=== PATIENT | female | born 1975 | race Caucasian/White ===

== ENCOUNTER → 2018-07-20 | Outpatient (CLI) | payer OTHER ==
[~2018-07-20] VITALS: Ht 172.7 cm; Wt 90.7 kg
[~2018-07-20] MED LIST: BUSP5TAB PO; FLUO20CA16 PO; LINZESS145 MCG PO; SINCALIDE 1.81 MCG in IV NORMAL SALINE 50ML 30 ML IV ONE; TRAZ150T49 PO
--- NOTE | 2018-07-20 12:51 | RAD ---
EXAM: Nuclear hepatobiliary scan. HISTORY: Bloating and pain. TECHNIQUE: Following intravenous administration of 5.5 mCi Tc 99m Choletec, anterior images of the abdomen were obtained at five minute intervals through one hour. Subsequently, 1.8 mcg CCK was administered and additional images to assess gallbladder ejection fraction were obtained. FINDINGS: There is prompt radiotracer uptake by the liver. No focal defect is seen. There is normal excretion into the biliary tree. The gallbladder is visualized within 10 minutes and there is free flow into the duodenum. The gallbladder ejection fraction is 95%. IMPRESSION: Normal radionuclide biliary scan. Electronically signed by: Flavia Oneil MD (07/20/2018 12:48 PM) [id number]
== END | disposition home or self-care (01) ==
LOC: NM 10:05
PROVIDERS: ATTEND Physician Assistant
DX: R14.0 Abdominal distension (gaseous) (principal)
CPT/HCPCS: 78227; A9537; J2805

== ENCOUNTER → 2018-07-23 | Outpatient (CLI) | payer OTHER ==
[~2018-07-23] MED LIST changes: -SINCALIDE 1.81 MCG in IV NORMAL SALINE 50ML 30 ML IV ONE
--- NOTE | 2018-07-23 09:31 | KCIC ---
Complete abdomen ultrasound study Clinical indications: Abdominal bloating. FINDINGS: The pancreas is homogeneous without focal enlargement. The main pancreatic duct measures 2.9 mm in caliber which is at the upper limits of normal. The extra hepatic bile duct measures 4.3 mm in caliber which is normal. The gallbladder is normal without gallstones. The liver measures 21.1 cm in length which is enlarged. There is diffuse attenuation of sound throughout the liver which may be seen with fatty infiltration of the liver. This decreases the sensitivity of sonography to detect focal hepatic lesions. No focal hepatic mass is seen otherwise. The intrahepatic portion of IVC is unremarkable. No focal aneurysmal dilatation of the abdominal aorta is seen. The distal abdominal aorta is obscured by bowel gas. The length of the right kidney is 11.4 cm. The length of the left kidney is 12.2 cm. No hydronephrosis or perinephric fluid collection is seen on either side. There is a complex cyst of the upper pole of the kidney measuring 2.4 cm in size. The spleen measures 10.8 cm in length which is normal. No ascites is seen. IMPRESSION: 2.4 cm complex cyst of the upper pole of the left kidney. Recommend pre and postcontrast enhanced CT study of the abdomen for further evaluation of this cyst. Hepatomegaly. Fatty infiltration of the liver. Electronically signed by: Hunter Treadwell MD (07/23/2018 9:28 AM) [facility]
== END | disposition home or self-care (01) ==
LOC: KCIC US 07:37
PROVIDERS: ATTEND Physician Assistant
DX: N28.1 Cyst of kidney, acquired (principal); K76.0 Fatty (change of) liver, not elsewhere classified; R16.0 Hepatomegaly, not elsewhere classified
CPT/HCPCS: 76700

== ENCOUNTER 2018-07-27 07:00 | Day surgery (SDC) | payer OTHER ==
[~2018-07-27] VITALS: Ht 167.6 cm; Wt 92.0 kg
[2018-07-27] MEDS ORDERED: IV RINGERS,LACTATED 1000ML 1,000 ML IV SCH (07:04)
[2018-07-27] MEDS ORDERED: LIDOCAINE 1% PF 2 ML VIAL. ID PRN (07:15)
[2018-07-27] MEDS ORDERED: ONDANSETRON PF 4 MG/2 ML VIAL. IV PRN (07:15)
[2018-07-27] MEDS ORDERED: PROCHLORPERAZINE 10 MG/2 ML VIAL. IV PRN (07:15)
[2018-07-27] MEDS ORDERED: HYDROmorphone 2 MG/ML VIAL IV PRN (07:15)
[2018-07-27] MEDS ORDERED: MORPHINE SULFATE 2 MG/ML VIAL. IV PRN (07:15)
[2018-07-27] MEDS ORDERED: fentaNYL PF VIAL 100 MCG/2 ML VIAL IV PRN ×2 (07:15)
[2018-07-27] MEDS ORDERED: LINZESS145 MCG PO (07:27)
[2018-07-27] MEDS ORDERED: TRAZ150T49 PO (07:28)
[2018-07-27] MEDS ORDERED: BUSP5TAB PO (07:29)
[2018-07-27] MEDS ORDERED: FLUO20CA16 PO (07:30)
[2018-07-27] MEDS ORDERED: SUCCINYLCHOLINE 200 MG/10 ML VIAL. ONE (07:44)
[2018-07-27] MEDS ORDERED: fentaNYL PF VIAL 100 MCG/2 ML VIAL ONE ×2 (07:44→10:14)
[2018-07-27] MEDS ORDERED: ROCURONIUM 50 MG/5 ML VIAL. ONE (07:44)
[2018-07-27] MEDS ORDERED: SCOPOLAMINE 1.5MG PATCH. TD STA (07:46)
[2018-07-27 07:47] LABS: BASO # 0.1 x10^3/uL (0.0-0.2); BASO % 1 % (0-3); EOS # 0.7 x10^3/uL (0.0-0.7); EOS % 8 % (0-3); HEMATOCRIT 39.8 % (36.0-47.0); LYMPH # 3.1 x10^3/uL (1.0-4.8); LYMPH % 37 % (24-48); MEAN CORPUSCULAR HEMOGLOBIN 29 pg (25-35); MEAN CORPUSCULAR HGB CONC 33 g/dL (31-37); MEAN CORPUSCULAR VOLUME 88 fL (79-100); MONO # 0.5 x10^3/uL (0.0-1.1); MONO % 6 % (0-9); NEUT # 4.1 x10^3uL (1.8-7.7); NEUT % 48 % (31-73); PLATELET COUNT 403 x10^3/uL (140-400); RED BLOOD COUNT 4.54 x10^6/uL (3.50-5.40); WHITE BLOOD COUNT 8.5 x10^3/uL (4.0-11.0)
[2018-07-27] MEDS ORDERED: PROPOFOL 20 ML IV ONE (07:55)
[2018-07-27] MEDS ORDERED: LIDOCAINE 2% PF 5 ML VIAL. ONE (07:55)
[2018-07-27 08:06] LABS: CALCIUM 9.1 mg/dL (8.5-10.1); CREATININE 0.8 mg/dL (0.6-1.0); GFR 78.7
[2018-07-27 08:11] LABS: ALBUMIN 3.8 g/dL (3.4-5.0); TOTAL BILIRUBIN 0.3 mg/dL (0.2-1.0)
[2018-07-27] MEDS ORDERED: IOHEXOL 300 MG/ML 100ML VIAL. ONE (08:41)
[2018-07-27] MEDS ORDERED: BUPIVAC MPF-EPI 0.5%-1:200000 30 ML VIAL. ONE (08:41)
[2018-07-27] MEDS ORDERED: GLUCAGON,HUMAN RECOMBINANT 1 MG/ML VIAL. ONE (08:41)
[2018-07-27] MEDS ORDERED: SURGICEL HEMOSTAT 4X8 EACH. ONE (08:41)
[2018-07-27] MEDS ORDERED: DEXAMETHASONE SOD PHOS 20 MG/5 ML VIAL. ONE (08:57)
[2018-07-27] MEDS ORDERED: DESFLURANE 31 TO 60 MINUTES IH ONE (08:57)
[2018-07-27] MEDS ORDERED: FAMOTIDINE 20 MG/2 ML VIAL ONE (08:57)
[2018-07-27] MEDS ORDERED: diphenhydrAMINE 50 MG/ML VIAL ONE (09:03)
[2018-07-27] MEDS ORDERED: ONDANSETRON PF 4 MG/2 ML VIAL. ONE (09:07)
[2018-07-27] MEDS ORDERED: NEOSTIGMINE 10 MG/10 ML VIAL. ONE (09:07)
[2018-07-27] MEDS ORDERED: GLYCOPYRROLATE 1 MG/5 ML VIAL. ONE (09:07)
--- NOTE | 2018-07-27 09:46 | RAD ---
Examination: CHOLANGIOGRAM INTRAOPERATIVE History: CHOLANGIOGRAMS IN OR WITH C-ARM, FL TIME =.5 MINUTES Comparison/Correlation: None Findings: A total of 7 images from intraoperative cholangiography were provided for interpretation. Fluoroscopy was utilized for 0.5 minutes. Cholecystectomy is noted. No extravasation of contrast involving the cystic duct. Distention of the common bile duct, common hepatic duct, and partially visualized biliary tree noted. No suspicious filling defects. No suspicious stricture delineated on the limited images provided although relative narrowing of a right hepatic duct branch is noted. Impression: No extravasation. Cholecystectomy. Distention of the biliary tree diffusely is noted. No focal stricture or suspicious filling defect. Electronically signed by: Erickson Ferrer MD (07/27/2018 9:43 AM) [id number]
--- NOTE | 2018-07-27 10:03 | PDOC ---
BRIEF OPERATIVE NOTE Date: Jul 27, 2018 Pre-Op Diagnosis biliary dyskinesia Post-Op Diagnosis same, omental adhesions Procedure Performed l/s cholecystectomy with cholangiograms, QUINCY Surgeon Blue Knuckler Shannan TREVINO Anesthesia Type: General Blood Loss 10cc IV Fluid 1100cc Specimens Obtained GB Findings omental adhesions near umbilicus supple GB, normal grams Complications none Operative Note Wk # [id number] JUSTIN ERICKSON MD Jul 27, 2018 10:03
--- NOTE | 2018-07-27 10:05 | DISCH ---
DISCHARGE INSTRUCTIONS Condition on Discharge Condition on Discharge: Stable Activity After Discharge Activity Instructions for Disc: Activity as tolerated, Avoid exertion Driving Instructions after Dis: Do not drive (2-3 days) Diet after Discharge Diet after Discharge: Regular Wound Incision Care Wound/Incision Care: Ice to area for comfort Other wound/incision instructi: dustin shower Linda Follow-Up Follow up with: Blue next week JUSTIN ERICKSON MD Jul 27, 2018 10:05
[2018-07-27] MEDS ORDERED: PROCHLORPERAZINE 10 MG/2 ML VIAL. ONE (10:14)
[2018-07-27 10:58] VITALS: BP 119/73
[2018-07-27] MEDS ORDERED: oxyCODONE/APAP 5/325 1 TAB TABLET PO ONE (11:00)
--- NOTE | 2018-07-27 11:56 | OP ---
DATE OF SURGERY: 07/27/2018 PREOPERATIVE DIAGNOSIS: Biliary dyskinesia. POSTOPERATIVE DIAGNOSES: Biliary dyskinesia with omental adhesions. PROCEDURE: Laparoscopic cholecystectomy with cholangiogram, lysis of adhesions. SURGEON: Justin Erickson MD SPINNING LATHE OPERATOR AUTOMATIC: URIEL Mullins ANESTHESIA: General endotracheal. ESTIMATED BLOOD LOSS: 10. INTRAVENOUS FLUID: 1100. INDICATIONS: The patient is a 42-year-old female with right upper quadrant pain after meals that was exacerbated during her HIDA scan with CCK injection. DESCRIPTION OF PROCEDURE: The patient was brought to the operating suite, given a general endotracheal anesthetic and the abdomen prepped and draped in usual sterile fashion. An infraumbilical incision was infiltrated with local anesthetic, incised and a 5 mm Visiport used to safely gain access into the abdominal cavity, taking care to avoid injury to abdominal contents. Pneumoperitoneum established. Camera inserted. Inspection carried out. The lateral and midclavicular ports were placed under direct vision, and this allowed a LigaSure division of some omental adhesions from the abdominal wall near the umbilical port. Care was taken to avoid the adjacent bowel. The epigastric incision was then placed under direct vision. The gallbladder was retracted superolaterally and omental adhesions were carefully taken down with blunt and cautery dissection, avoiding injury to the adjacent bowel. The cystic duct and cystic artery were identified. The duct was clipped on the gallbladder side. Cholangiograms were made. These were normal. In light of this, the catheter was removed. The cystic duct was clipped x 3 and divided, taking care to avoid injury or compromise of the common duct. An anterior and posterior branch of cystic artery were clipped and divided. The gallbladder freed from the bed with cautery dissection and placed in an EndoCatch bag. Good hemostasis was present. Table returned to level. Gallbladder delivered through the epigastric incision. Epigastric incision closed with interrupted 0 Vicryl suture. Intra-abdominal pressure decreased to 6 cm of water. No bleeding from the epigastric port closure or from the midclavicular or lateral ports after their removal. Abdomen decompressed, camera slowly removed, no bleeding seen. Skin incisions closed with subcuticular 4-0 Monocryl. Steri-Strips and sterile dressings applied. The patient awakened from her anesthetic and taken to the recovery room in satisfactory condition. JUSTIN ERICKSON MD DR: Jeyson JOB#: [id number] / [id number]
--- NOTE | 2018-07-28 17:07 | PATHOLOGY ---
[facility] Accession Number: [id number] . 01 Material submitted: . GALLBLADDER AND CONTENTS . 01 Clinical history: . Biliary dyskinesia . 02 Diagnosis: Gallbladder, laparoscopic cholecystectomy: - Chronic cholecystitis. - Reactive changes of gallbladder neck lymph node. LBQ/07/28/2018 . 02 Comment: There are no calculi identified within the gallbladder lumen or specimen container. There is no evidence of malignancy. (JPM/db; 07/28/2018) . 02 Electronically signed: . Lalo Ortiz MD, Pathologist NPI- [id number] . 01 Gross description: . The specimen is received in formalin, labeled "Gustavo Mayer, gallbladder and contents", is an intact gallbladder measuring 9.5 x 2.5 x 2.0 cm with wrinkling, green-purple serosa. Within the cystic neck region there is a diaz-pink, rubbery lymph node measuring 1.4 x 0.5 x 0.5 cm. The lumen is filled with yellow-green viscous bile and no discrete calculi. The mucosa is diaz-brown, granular and the wall has an average thickness of 0.1 cm. No discrete masses are identified. Hose Maker tissue is submitted in A1. ([facility]; 07/27/2018) SHS/SHS . 02 Pathologist provided ICD-10: K81.1 . 02 CPT . 598232 Specimen Comment: A courtesy copy of this report has been sent to Specimen Comment: [phone], . Specimen Comment: Report sent to / DR BRENNAN Performed at: [address], [place], [place] [id number] MD Jam Solano MD Phone: [phone] Performed at: 02 [facility] [address] [place] [id number] MD Lalo Ortiz MD Phone: [phone]
== END 2018-07-27 11:38 | disposition home or self-care (01) ==
LOC: SURG 07:00
PROVIDERS: ATTEND Surgery
DX: K81.1 Chronic cholecystitis (principal); Z88.0 Allergy status to penicillin; E28.2 Polycystic ovarian syndrome; Z90.49 Acquired absence of other specified parts of digestive tract; Z90.710 Acquired absence of both cervix and uterus; Z98.51 Tubal ligation status; Z90.721 Acquired absence of ovaries, unilateral; F17.210 Nicotine dependence, cigarettes, uncomplicated; Z72.89 Other problems related to lifestyle; Z79.899 Other long term (current) drug therapy; Z98.890 Other specified postprocedural states
CPT/HCPCS: 36415; 47563; 74300; 80048; 82040; 82247; 85025; 88304; A7015; J0330; J0780; J1100; J1200; J1956; J2001; J2405; J2704; J2710; J3010; J3490; J7030; J7120; Q9967; J1610

== ENCOUNTER → 2019-06-13 | Outpatient (CLI) | payer OTHER ==
--- NOTE | 2019-06-13 15:42 | KCIC ---
AP and Lateral Views of the Chest 06/13/2019 12:00 AM Indication: Bronchitis. Comparison: None Findings: There is no focal consolidation or infiltrate identified. The cardiomediastinal silhouette is within normal limits. There is no evidence of pneumothorax or pleural effusion. No acute osseous abnormalities are identified. Impression: No evidence of acute cardiopulmonary process. Electronically signed by: Cory Raines MD (06/13/2019 3:40 PM) [id number]
== END | disposition home or self-care (01) ==
LOC: KCIC 14:51
PROVIDERS: ATTEND Family Medicine
DX: J40 Bronchitis, not specified as acute or chronic (principal)
CPT/HCPCS: 71046

== ENCOUNTER 2019-11-14 20:07 | Inpatient (IN) | payer OTHER ==
[~2019-11-14] VITALS: Ht 172.7 cm; Wt 82.3 kg
[2019-11-14] MEDS ORDERED: IV NORMAL SALINE 1000ML BAG 1,000 ML IV SCH (20:11)
[2019-11-14] MEDS ORDERED: methylPREDNISolone SOD SUCC PF 125 MG/2 ML VIAL. ONE (20:13)
[2019-11-14] MEDS ORDERED: diphenhydrAMINE 50 MG/ML VIAL ONE (20:13)
[2019-11-14] MEDS ORDERED: FAMOTIDINE 20 MG/2 ML VIAL ONE (20:13)
[2019-11-14] MEDS ORDERED: EPINEPHrine 1 MG/ML VIAL ONE (20:13)
[2019-11-14] MEDS ORDERED: methylPREDNISolone SOD SUCC PF 125 MG/2 ML VIAL. IV ONE (20:15)
[2019-11-14] MEDS ORDERED: EPINEPHrine 1 MG/ML VIAL SQ ONE (20:15)
[2019-11-14] MEDS ORDERED: diphenhydrAMINE 50 MG/ML VIAL IVP ONE (20:15)
[2019-11-14] MEDS ORDERED: FAMOTIDINE 20 MG/2 ML VIAL IVP ONE (20:15)
--- NOTE | 2019-11-14 20:22 | PHYS DOC ---
General Adult EDM: Chief Complaint: OVERDOSE HPI: HPI: Patient is a 43 year old female who arrives via EMS with report of being found unresponsive by her children who called 911. Upon EMS arrival, patient was lethargic but arousable and had informed EMS that she had taken penicillin in an attempt to take her life as she is penicillin allergic. Patient states that she believes that she did not take anything else. EMS indicates that they found a bottle of trazodone next to her bedside. Patient states that she does not believe that she had taken any of her trazodone. Unable to estimate whether she may have taken any trazodone at all as patient has had that prescription for quite some time and majority of pills remain in bottle. [] Review of Systems: Review of Systems: Constitutional: Denies fever or chills. [] Respiratory: Denies cough or shortness of breath. [] Cardiovascular: Denies chest pain or edema. [] GI: Denies abdominal pain, nausea, vomiting or diarrhea. [] Integument: Positive rash. [] Psychiatric: Positive depression and anxiety. [] Heart Score: Risk Factors: Risk Factors: DM, Current or recent (<one month) smoker, HTN, HLP, family history of CAD, obesity. Risk Scores: Score 0 - 3: 2.5% MACE over next 6 weeks - Discharge Home Score 4 - 6: 20.3% MACE over next 6 weeks - Admit for Clinical Observation Score 7 - 10: 72.7% MACE over next 6 weeks - Early Invasive Strategies Current Medications: Current Medications Medications (Trade) Dose Ordered Sig/Citlali Start Time Stop Time Status Last Admin Dose Admin Diphenhydramine HCl (Benadryl) 50 mg 1X ONCE 11/14/19 20:15 11/14/19 20:16 DC Epinephrine HCl (Adrenalin) 1 mg STK-MED ONCE 11/14/19 20:13 11/14/19 20:13 DC Famotidine (Pepcid Vial) 20 mg STK-MED ONCE 11/14/19 20:13 11/14/19 20:13 DC Methylprednisolone Sodium Succinate (SOLU-Medrol 125MG VIAL) 125 mg STK-MED ONCE 11/14/19 20:13 11/14/19 20:13 DC Sodium Chloride 1,000 ml @ 1,000 mls/hr Q1H 11/14/19 20:11 11/14/19 21:10 Allergies: Allergies: Allergies Coded Allergies Type Severity Reaction Last Updated Verified Penicillins Allergy Severe Anaphylaxis 07/27/18 Yes Physical Exam: PE: Constitutional: Well developed, well nourished, no acute distress, non-toxic appearance. [] HENT: Normocephalic, atraumatic, bilateral external ears normal, swelling of lips noted, no oral exudates, nose normal. [] Eyes: PERRLA, EOMI, conjunctiva normal, with mild periorbital swelling. [] Neck: Normal range of motion, no tenderness, supple. [] Cardiovascular: Regular rate and rhythm [] Lungs & Thorax: Bilateral breath sounds clear to auscultation [] Abdomen: Bowel sounds normal, soft, no tenderness. [] Skin: Warm, dry, diffusely erythematous with some fine urticaria. [] Extremities: No tenderness, no cyanosis, no clubbing, ROM intact, no edema. [] Neurologic: Alert and oriented X 3, normal motor function, normal sensory function, no focal deficits noted. [] Psychologic: Affect normal, judgement normal, mood normal. [] EKG: EKG: [] Radiology/Procedures: Radiology/Procedures: [] Course & Med Decision Making: Course & Med Decision Making Pertinent Labs and Imaging studies reviewed. (See chart for details) [] Dragon Disclaimer: Dragon Disclaimer: This electronic medical record was generated, in whole or in part, using a voice recognition dictation system. Departure Departure Impression: Primary Impression: Suicide attempt Additional Impression: Allergic reaction caused by a drug Qualified Codes: T78.40XA - Allergy, unspecified, initial encounter Disposition: ADMITTED INPATIENT Admitting Physician: ALFREDO Condition: IMPROVED Referrals: CHEL BRENNAN MD (PCP) Justicifation of Admission Dx: Justifications for Admission: Justification of Admission Dx: Comment: (suicide attempt; allergic reaction) RUDOLPH MOTA Jr. DO Nov 14, 2019 20:22
[2019-11-14 20:28] LABS: BASO % 1 % (0-3); EOS # 0.1 x10^3/uL (0.0-0.7); EOS % 1 % (0-3); HEMATOCRIT 46.9 % (36.0-47.0); HEMOGLOBIN 16.1 g/dL (12.0-15.5); LYMPH # 3.5 x10^3/uL (1.0-4.8); LYMPH % 47 % (24-48); MEAN CORPUSCULAR HEMOGLOBIN 31 pg (25-35); MEAN CORPUSCULAR HGB CONC 34 g/dL (31-37); MEAN CORPUSCULAR VOLUME 90 fL (79-100); MONO # 0.3 x10^3/uL (0.0-1.1); MONO % 4 % (0-9); NEUT # 3.5 x10^3/uL (1.8-7.7); NEUT % 47 % (31-73); PLATELET COUNT 494 x10^3/uL (140-400); RED BLOOD COUNT 5.23 x10^6/uL (3.50-5.40); WHITE BLOOD COUNT 7.5 x10^3/uL (4.0-11.0)
[2019-11-14 20:41] LABS: CALCIUM 8.2 mg/dL (8.5-10.1); CREATININE 1.2 mg/dL (0.6-1.0); POTASSIUM 3.6 mmol/L (3.5-5.1)
[2019-11-14 20:47] LABS: ALBUMIN 3.8 g/dL (3.4-5.0); DIRECT BILIRUBIN 0.1 mg/dL (0.0-0.2); MAGNESIUM 1.9 mg/dL (1.8-2.4); TOTAL BILIRUBIN 0.3 mg/dL (0.2-1.0); TOTAL PROTEIN 7.1 g/dL (6.4-8.2)
[2019-11-14 21:11] LABS: BILIRUBIN,URINE NEGATIVE (NEG); CLARITY,URINE CLEAR; COLOR,URINE YELLOW; NITRITE,URINE NEGATIVE (NEG); PH,URINE 5.5 (<5.0-8.0); PROTEIN,URINE 100 mg/dL (NEG-TRACE); UROBILINOGEN,URINE 0.2 mg/dL (0.2 mg/dL)
[2019-11-14 21:18] LABS: BARBITURATES NEG (NEG); BENZODIAZEPINES NEG (NEG); CANNABINOIDS NEG (NEG); COCAINE NEG (NEG); METHADONE NEG (NEG); OPIATES NEG (NEG); PHENCYCLIDINE NEG (NEG)
[2019-11-14 21:21] LABS: AMPHETAMINE/METHAMPHETAMINE NEG (NEG)
[2019-11-14 21:39] LABS: BACTERIA,URINE 0 /HPF (0-FEW); HYALINE CASTS, URINE MANY /HPF; RBC,URINE 0 /HPF (0-2); SQUAMOUS EPITHELIAL CELL,UR MOD /LPF
[2019-11-15] MEDS: ZOLPIDEM 5 MG TABLET. PO PRN ×3 (01:40→01:42)
[2019-11-15] MEDS ORDERED: traZODone 50 MG TABLET. PO PRN (01:45)
[2019-11-15] MEDS ORDERED: traZODone 100 MG TABLET. PO ONE (04:30)
--- NOTE | 2019-11-15 06:20 | EKG ---
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
--- NOTE | 2019-11-15 07:20 | NUR ---
Pt arrived on unit at approx 0715 by wheelchair from ED. Pt in bed, calm and cooperative. Denies pain at this time. 1:1 at bedside, belongings removed from pt room and stored in locked med room. Medications sent to pharmacy at time of admission.
[2019-11-15 07:25] VITALS: BP 149/89
[2019-11-15 11:00] VITALS: BP 132/87
[2019-11-15] MEDS ORDERED: NALT50TA PO (12:13)
[2019-11-15] MEDS ORDERED: METH-38 PO (12:13)
[2019-11-15] MEDS ORDERED: BUPR150T6 PO (12:13)
[2019-11-15] MEDS ORDERED: CYCL10TA2 PO (12:13)
--- NOTE | 2019-11-15 12:51 | NUR ---
SW following. Reviewed chart and spoke with RN. Pt from home. PAT referral made per psychiatric consult. Pt took penicillin in an attempt to take her life as she is allergic to penicillin per ER notes. LALO coordinated care with Abisai from PAT and pt is clear for discharge. Pt has been referred for out-patient mental health services at [facility] per Abisai. This is pt's first suicide attempt as a result of life-stressors per Abisai. No further SW needs at this time.
--- NOTE | 2019-11-15 12:55 | PDOC1 ---
History and Physical Date of Admission Date of Admission DATE: 11/15/19 TIME: 12:45 Identification/Chief Complaint Chief Complaint Suicidal attempt Problems: (1) Suicide attempt (2) Allergic reaction caused by a drug Source Source: Chart review, Patient History of Present Illness History of Present Illness 43 year old CF hx of depression presents after being found unresponsive by her kids who called 911. patient lethargic but arousable by EMS. patient had attempted suicide by taking 1-2 pills of PCN knowing she has a pcn allergy. she did not take any other pills. trazodone found at bedside but reported she did not take any. patient states she quit etoh but started drinking more heavily recently since covid outbreak. no prior hx of suicide attempts. states she takes her psych meds as prescribed. admitted for SI to hospitalist service. Past Medical History Past Medical History depression Past Surgical History Past Surgical History hx of gastric sleeve in Mar 2019 Family History Family History denies Social History Smoke: No ALCOHOL: occassional Drugs: None Current Problem List Problem List Problems Medical Problems: (1) Allergic reaction caused by a drug Status: Acute (2) Suicide attempt Status: Acute Current Medications Current Medications Current Medications Diphenhydramine HCl (Benadryl) 50 mg STK-MED ONCE .ROUTE ; Start 11/14/19 at 20:13; Stop 11/14/19 at 20:13; Status DC Sodium Chloride 1,000 ml @ 1,000 mls/hr Q1H IV Last administered on 11/14/19at 20:11; Start 11/14/19 at 20:11; Stop 11/14/19 at 21:10; Status DC Diphenhydramine HCl (Benadryl) 50 mg 1X ONCE IVP Last administered on 11/14/19at 20:20; Start 11/14/19 at 20:15; Stop 11/14/19 at 20:16; Status DC Famotidine (Pepcid Vial) 20 mg 1X ONCE IVP Last administered on 11/14/19at 20:20; Start 11/14/19 at 20:15; Stop 11/14/19 at 20:16; Status DC Methylprednisolone Sodium Succinate (SOLU-Medrol 125MG VIAL) 125 mg 1X ONCE IV Last administered on 11/14/19at 20:28; Start 11/14/19 at 20:15; Stop 11/14/19 at 20:16; Status DC Epinephrine HCl (Adrenalin) 0.3 mg 1X ONCE SQ Last administered on 11/14/19at 20:28; Start 11/14/19 at 20:15; Stop 11/14/19 at 20:16; Status DC Famotidine (Pepcid Vial) 20 mg STK-MED ONCE .ROUTE ; Start 11/14/19 at 20:13; Stop 11/14/19 at 20:13; Status DC Epinephrine HCl (Adrenalin) 1 mg STK-MED ONCE .ROUTE ; Start 11/14/19 at 20:13; Stop 11/14/19 at 20:13; Status DC Methylprednisolone Sodium Succinate (SOLU-Medrol 125MG VIAL) 125 mg STK-MED ONCE .ROUTE ; Start 11/14/19 at 20:13; Stop 11/14/19 at 20:13; Status DC Zolpidem Tartrate (Ambien) 5 mg PRN QHS PRN PO INSOMNIA, MAY REPEAT X1 Last administered on 11/15/19at 01:41; Start 11/15/19 at 01:30 Trazodone HCl (Desyrel) 50 mg PRN QHS PRN PO INSOMNIA Last administered on 11/15/19at 01:51; Start 11/15/19 at 01:45; Stop 11/15/19 at 04:06; Status DC Trazodone HCl (Desyrel) 100 mg 1X ONCE PO Last administered on 11/15/19at 04:10 ; Start 11/15/19 at 04:30; Stop 11/15/19 at 04:31; Status DC Trazodone HCl (Desyrel) 150 mg QHS PO ; Start 11/15/19 at 21:00 Active Scripts Active Reported Naltrexone Hcl 50 Mg Tablet 50 Mg PO DAILY Robaxin-750 (Methocarbamol) 750 Mg Tablet 1 Tab PO TID PRN 30 Days Cyclobenzaprine Hcl 10 Mg Tablet 1 Tab PO TID PRN Bupropion Xl (Bupropion Hcl) 150 Mg Tab.er.24h 300 Mg PO DAILY Prozac (Fluoxetine Hcl) 20 Mg Capsule 1 Cap PO [id number] Buspirone Hcl 5 Mg Tablet 1 Tab PO PRN PRN Trazodone Hcl 150 Mg Tablet 1 Tab PO QHS Linzess (Linaclotide) 145 Mcg Capsule 145 Mcg PO [id number] Allergies Allergies: Coded Allergies: Penicillins (Verified Allergy, Severe, Anaphylaxis, 07/27/18) ROS Review of System CONSTITUTIONAL: No fever or chills EYES: No recent changes SKIN: No rash or itching CARDIOVASCULAR: No chest pain, syncope, palpitations, or edema RESPIRATORY: No SOB or cough GASTROINTESTINAL: No nausea, vomiting or abdominal pain NEUROLOGICAL: No headaches or weakness ENDOCRINE: No cold or heat intolerance GENITOURINARY: No urgency or frequency of urination MUSCULOSKELETAL: No back pain or joint pain LYMPHATICS: No enlarged lymph nodes PSYCHIATRIC: No anxiety or depression Physical Exam Physical Exam GENERAL: No apparent distress. Alert and oriented. HEENT: Head normocephalic, atraumatic. NECK: Supple LUNGS: Clear to auscultation. HEART: RRR, S1, S2 present, pulses intact ABDOMEN: Soft, positive bowel sounds. EXTREMITIES: No cyanosis or edema. NEUROLOGIC: Normal speech, normal tone PSYCHIATRIC: Normal affect, normal mood. SKIN: No ulceration. Vitals Vitals Vital Signs Date Time Temp Pulse Resp B/P (MAP) Pulse Ox O2 Delivery O2 Flow Rate FiO2 11/15/19 11:00 98.1 85 20 132/87 (102) 96 Room Air 98.1 Labs Labs Laboratory Tests Test 11/14/19 20:21 11/14/19 21:04 11/14/19 23:27 White Blood Count 7.5 x10^3/uL (4.0-11.0) Red Blood Count 5.23 x10^6/uL (3.50-5.40) Hemoglobin 16.1 g/dL (12.0-15.5) Hematocrit 46.9 % (36.0-47.0) Mean Corpuscular Volume 90 fL (79-100) Mean Corpuscular Hemoglobin 31 pg (25-35) Mean Corpuscular Hemoglobin Concent 34 g/dL (31-37) Red Cell Distribution Width 14.0 % (11.5-14.5) Platelet Count 494 x10^3/uL (140-400) Neutrophils (%) (Auto) 47 % (31-73) Lymphocytes (%) (Auto) 47 % (24-48) Monocytes (%) (Auto) 4 % (0-9) Eosinophils (%) (Auto) 1 % (0-3) Basophils (%) (Auto) 1 % (0-3) Neutrophils # (Auto) 3.5 x10^3/uL (1.8-7.7) Lymphocytes # (Auto) 3.5 x10^3/uL (1.0-4.8) Monocytes # (Auto) 0.3 x10^3/uL (0.0-1.1) Eosinophils # (Auto) 0.1 x10^3/uL (0.0-0.7) Basophils # (Auto) 0.0 x10^3/uL (0.0-0.2) Sodium Level 139 mmol/L (136-145) Potassium Level 3.6 mmol/L (3.5-5.1) Chloride Level 100 mmol/L (98-107) Carbon Dioxide Level 25 mmol/L (21-32) Anion Gap 14 (6-14) Blood Urea Nitrogen 18 mg/dL (7-20) Creatinine 1.2 mg/dL (0.6-1.0) Estimated GFR (Cockcroft-Gault) 49.0 Glucose Level 197 mg/dL (70-99) Calcium Level 8.2 mg/dL (8.5-10.1) Magnesium Level 1.9 mg/dL (1.8-2.4) Total Bilirubin 0.3 mg/dL (0.2-1.0) Direct Bilirubin 0.1 mg/dL (0.0-0.2) Aspartate Amino Transf (AST/SGOT) 64 U/L (15-37) Alanine Aminotransferase (ALT/SGPT) 42 U/L (14-59) Alkaline Phosphatase 72 U/L (46-116) Total Protein 7.1 g/dL (6.4-8.2) Albumin 3.8 g/dL (3.4-5.0) Ethyl Alcohol Level 269 mg/dL (0-10) Urine Collection Type Unknown Urine Color Yellow Urine Clarity Clear Urine pH 5.5 (<5.0-8.0) Urine Specific [place] 1.020 (1.000-1.030) Urine Protein 100 mg/dL (NEG-TRACE) Urine Glucose (UA) Negative mg/dL (NEG) Urine Ketones (Stick) Negative mg/dL (NEG) Urine Blood Negative (NEG) Urine Nitrite Negative (NEG) Urine Bilirubin Negative (NEG) Urine Urobilinogen Dipstick 0.2 mg/dL (0.2 mg/dL) Urine Leukocyte Esterase Negative (NEG) Urine RBC 0 /HPF (0-2) Urine WBC 1-4 /HPF (0-4) Urine Squamous Epithelial Cells Mod /LPF Urine Transitional Epithelial Cells Few /LPF Urine Bacteria 0 /HPF (0-FEW) Urine Hyaline Casts Many /HPF Urine Mucus Marked /LPF Urine Opiates Screen Neg (NEG) Urine Methadone Screen Neg (NEG) Urine Barbiturates Neg (NEG) Urine Phencyclidine Screen Neg (NEG) Urine Amphetamine/Methamphetamine Neg (NEG) Urine Benzodiazepines Screen Neg (NEG) Urine Cocaine Screen Neg (NEG) Urine Cannabinoids Screen Neg (NEG) Urine Ethyl Alcohol Pos (NEG) Coronavirus (COVID-19)(PCR) Negative (NEGATIVE) Laboratory Tests Test 11/14/19 20:21 11/14/19 21:04 11/14/19 23:27 White Blood Count 7.5 x10^3/uL (4.0-11.0) Red Blood Count 5.23 x10^6/uL (3.50-5.40) Hemoglobin 16.1 g/dL (12.0-15.5) Hematocrit 46.9 % (36.0-47.0) Mean Corpuscular Volume 90 fL (79-100) Mean Corpuscular Hemoglobin 31 pg (25-35) Mean Corpuscular Hemoglobin Concent 34 g/dL (31-37) Red Cell Distribution Width 14.0 % (11.5-14.5) Platelet Count 494 x10^3/uL (140-400) Neutrophils (%) (Auto) 47 % (31-73) Lymphocytes (%) (Auto) 47 % (24-48) Monocytes (%) (Auto) 4 % (0-9) Eosinophils (%) (Auto) 1 % (0-3) Basophils (%) (Auto) 1 % (0-3) Neutrophils # (Auto) 3.5 x10^3/uL (1.8-7.7) Lymphocytes # (Auto) 3.5 x10^3/uL (1.0-4.8) Monocytes # (Auto) 0.3 x10^3/uL (0.0-1.1) Eosinophils # (Auto) 0.1 x10^3/uL (0.0-0.7) Basophils # (Auto) 0.0 x10^3/uL (0.0-0.2) Sodium Level 139 mmol/L (136-145) Potassium Level 3.6 mmol/L (3.5-5.1) Chloride Level 100 mmol/L (98-107) Carbon Dioxide Level 25 mmol/L (21-32) Anion Gap 14 (6-14) Blood Urea Nitrogen 18 mg/dL (7-20) Creatinine 1.2 mg/dL (0.6-1.0) Estimated GFR (Cockcroft-Gault) 49.0 Glucose Level 197 mg/dL (70-99) Calcium Level 8.2 mg/dL (8.5-10.1) Magnesium Level 1.9 mg/dL (1.8-2.4) Total Bilirubin 0.3 mg/dL (0.2-1.0) Direct Bilirubin 0.1 mg/dL (0.0-0.2) Aspartate Amino Transf (AST/SGOT) 64 U/L (15-37) Alanine Aminotransferase (ALT/SGPT) 42 U/L (14-59) Alkaline Phosphatase 72 U/L (46-116) Total Protein 7.1 g/dL (6.4-8.2) Albumin 3.8 g/dL (3.4-5.0) Ethyl Alcohol Level 269 mg/dL (0-10) Urine Collection Type Unknown Urine Color Yellow Urine Clarity Clear Urine pH 5.5 (<5.0-8.0) Urine Specific [place] 1.020 (1.000-1.030) Urine Protein 100 mg/dL (NEG-TRACE) Urine Glucose (UA) Negative mg/dL (NEG) Urine Ketones (Stick) Negative mg/dL (NEG) Urine Blood Negative (NEG) Urine Nitrite Negative (NEG) Urine Bilirubin Negative (NEG) Urine Urobilinogen Dipstick 0.2 mg/dL (0.2 mg/dL) Urine Leukocyte Esterase Negative (NEG) Urine RBC 0 /HPF (0-2) Urine WBC 1-4 /HPF (0-4) Urine Squamous Epithelial Cells Mod /LPF Urine Transitional Epithelial Cells Few /LPF Urine Bacteria 0 /HPF (0-FEW) Urine Hyaline Casts Many /HPF Urine Mucus Marked /LPF Urine Opiates Screen Neg (NEG) Urine Methadone Screen Neg (NEG) Urine Barbiturates Neg (NEG) Urine Phencyclidine Screen Neg (NEG) Urine Amphetamine/Methamphetamine Neg (NEG) Urine Benzodiazepines Screen Neg (NEG) Urine Cocaine Screen Neg (NEG) Urine Cannabinoids Screen Neg (NEG) Urine Ethyl Alcohol Pos (NEG) Coronavirus (COVID-19)(PCR) Negative (NEGATIVE) VTE Prophylaxis Ordered VTE Prophylaxis Devices: Yes VTE Pharmacological Prophylaxi: Yes Assessment/Plan Assessment/Plan ASSESSMENT Active SI attempt after taking PCN with known allergy to PCN hyperglycemia PLAN admit to medical floor no signs or symptoms of anaphylaxis check a1c psych consult for clearance. 1:1 obs given SI dvt ppx full code Justicifation of Admission Dx: Justifications for Admission: Justification of Admission Dx: Yes Problem Qualifiers (1) Allergic reaction caused by a drug: Encounter type: initial encounter Qualified Codes: T78.40XA - Allergy, unspecified, initial encounter MARIBELL DAVILA MD Nov 15, 2019 12:55
[2019-11-15 15:00] VITALS: BP 121/81
[2019-11-15] MEDS ORDERED: METHOCARBAMOL 750 MG TABLET PO PRN (15:15)
[2019-11-15] MEDS ORDERED: CYCLOBENZAPRINE 10 MG TABLET. PO PRN (15:15)
[2019-11-15] MEDS: NALTREXONE HCL 50 MG TABLET. PO SCH (15:30)
[2019-11-15] MEDS ORDERED: FLUoxetine HCL 20 MG CAPSULE PO SCH (15:30)
[2019-11-15] MEDS: buPROPion XL 150 MG TAB.ER.24H. PO SCH (15:40)
[2019-11-15] MEDS: LUBIPROSTONE 24 MCG CAPSULE PO SCH (17:00)
[2019-11-15 19:00] VITALS: BP 130/70
--- NOTE | 2019-11-15 19:48 | PDOC1 ---
History & Psych Evaluation Date of Admission: Date of Admission DATE: 11/15/19 TIME: 19:31 Source: Source: Caregiver, Chart review, Patient Identification: Identification She is a 43-year-old white female admitted with suicidal attempt by taking medication she is allergic to. Chief Complaint: Chief Complaint Suicidal attempt, depression, anxiety, alcohol use disorder. History of Present Illness: HPI: 43-year-old white female with history of depression, anxiety, alcohol use disorder admitted with suicidal attempt. She intentionally took 2 tablets of penicillin to which she had severe hypersensitivity reaction including angioedema and face swelling in the past. She was found unresponsive by her children at home.. Upon interview, she appears stressed out, tearful, crying, and impulsive. She appears very anxious and minimizing the severity of situation. Stating, she has history of depression and anxiety. Previously she used Wellbutrin/naltrexone combination for weight loss. Back then she found considerable improvement in depression with Wellbutrin. Presently, she is on Wellbutrin XL 150 mg daily. States, her depression got worse since June and she relapsed on her alcohol after being sober for 3 years. Gradually, her alcohol intake got worse drinking couple of pints every day. Precipitating factor for worsening of depression and increased alcohol or ongoing COVID pandemic, isolation, and limited socialization. She recalled, taking 2 tablets of penicillin with intention to take her life. However, she is not aware of circumstances that led to unresponsiveness. Anxiety is reportedly high. Depression is moderate to severe. Reporting history of PTSD related to previous traumatic past. Denies history of bipolar mood disorder. Denies history of auditory or visual hallucinations. She denies history of complicated alcohol withdrawals including DTs, seizures, or alcohol hallucinosis. Past Psychiatric History: Previous history of depression and anxiety. Denies previous psychiatric hospital admissions. Medications including Wellbutrin and Prozac. Past Medical History: Gastric sleeve in place since March 2019 Depression and anxiety Social History: Social History: She lives with her boyfriend and 2 children. Boyfriend is out of town. 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 She has 3 children. and 3 times denies legal issues. Denies history of illicit substance use Current Medications: Current Medications Current Medications Medications (Trade) Dose Ordered Sig/Citlali Start Time Stop Time Status Last Admin Dose Admin Bupropion HCl (Wellbutrin Xl) 300 mg DAILY 11/15/19 15:30 11/15/19 15:40 300 MG Cyclobenzaprine HCl (Flexeril) 10 mg PRN TID PRN 11/15/19 15:15 Diphenhydramine HCl (Benadryl) 50 mg 1X ONCE 11/14/19 20:15 11/14/19 20:16 DC 11/14/19 20:20 50 MG Epinephrine HCl (Adrenalin) 1 mg STK-MED ONCE 11/14/19 20:13 11/14/19 20:13 DC Famotidine (Pepcid Vial) 20 mg STK-MED ONCE 11/14/19 20:13 11/14/19 20:13 DC Fluoxetine HCl (PROzac) 20 mg DAILYWBKFT 11/15/19 15:30 11/15/19 15:40 20 MG Lubiprostone (Amitiza) 24 mcg BIDWMEALS 11/15/19 17:00 Methocarbamol (Robaxin) 750 mg PRN TID PRN 11/15/19 15:15 Methylprednisolone Sodium Succinate (SOLU-Medrol 125MG VIAL) 125 mg STK-MED ONCE 11/14/19 20:13 11/14/19 20:13 DC Naltrexone HCl (ReVia) 50 mg DAILY 11/15/19 15:30 Sodium Chloride 1,000 ml @ 1,000 mls/hr Q1H 11/14/19 20:11 11/14/19 21:10 DC 11/14/19 20:11 1,000 MLS/HR Trazodone HCl (Desyrel) 150 mg QHS 11/15/19 21:00 Zolpidem Tartrate (Ambien) 5 mg PRN QHS PRN 11/15/19 01:30 11/15/19 01:41 5 MG Allergies: Allergies: Coded Allergies: Penicillins (Verified Allergy, Severe, Anaphylaxis, 07/27/18) Mental Status Examination: Mental Status Examination 53-year-old female, appears her stated age, fairly groomed, fairly nourished She is anxious and impulsive, crying and tearful. Alert and oriented. Thought processes concrete. Denies auditory or visual hallucinations. No abnormal perception noted. Denies suicidal or homicidal thoughts. Admitted with suicidal attempt. Mood is dysphoric. Affect is dysthymic and labile. Insight is limited. Judgment is poor. Impulse control is poor. Attention and concentration impaired Recent and remote memory intact. ROS: CONSTITUTIONAL: No fever or chills EYES: No recent changes SKIN: No rash or itching CARDIOVASCULAR: No chest pain, syncope, palpitations, or edema RESPIRATORY: No SOB or cough GASTROINTESTINAL: No nausea, vomiting or abdominal pain NEUROLOGICAL: No headaches or weakness ENDOCRINE: No cold or heat intolerance GENITOURINARY: No urgency or frequency of urination MUSCULOSKELETAL: No back pain or joint pain LYMPHATICS: No enlarged lymph nodes PSYCHIATRIC: Psychiatric review of system is positive for alcohol intoxication, withdrawals, depression, anxiety, and suicidal thoughts. Physical Exam: Refer to Physician's note. LICENSED ESTHETICIAN: No focal deficit MSK: No EPS, TDK, or abnormal involuntary movements Vitals: Vitals Vital Signs Date Time Temp Pulse Resp B/P (MAP) Pulse Ox O2 Delivery O2 Flow Rate FiO2 11/15/19 19:00 98.2 80 18 130/70 (90) 96 Room Air 98.2 Labs: Labs Laboratory Tests Test 11/14/19 20:21 11/14/19 21:04 11/14/19 23:27 White Blood Count 7.5 x10^3/uL (4.0-11.0) Red Blood Count 5.23 x10^6/uL (3.50-5.40) Hemoglobin 16.1 g/dL (12.0-15.5) Hematocrit 46.9 % (36.0-47.0) Mean Corpuscular Volume 90 fL (79-100) Mean Corpuscular Hemoglobin 31 pg (25-35) Mean Corpuscular Hemoglobin Concent 34 g/dL (31-37) Red Cell Distribution Width 14.0 % (11.5-14.5) Platelet Count 494 x10^3/uL (140-400) Neutrophils (%) (Auto) 47 % (31-73) Lymphocytes (%) (Auto) 47 % (24-48) Monocytes (%) (Auto) 4 % (0-9) Eosinophils (%) (Auto) 1 % (0-3) Basophils (%) (Auto) 1 % (0-3) Neutrophils # (Auto) 3.5 x10^3/uL (1.8-7.7) Lymphocytes # (Auto) 3.5 x10^3/uL (1.0-4.8) Monocytes # (Auto) 0.3 x10^3/uL (0.0-1.1) Eosinophils # (Auto) 0.1 x10^3/uL (0.0-0.7) Basophils # (Auto) 0.0 x10^3/uL (0.0-0.2) Sodium Level 139 mmol/L (136-145) Potassium Level 3.6 mmol/L (3.5-5.1) Chloride Level 100 mmol/L (98-107) Carbon Dioxide Level 25 mmol/L (21-32) Anion Gap 14 (6-14) Blood Urea Nitrogen 18 mg/dL (7-20) Creatinine 1.2 mg/dL (0.6-1.0) Estimated GFR (Cockcroft-Gault) 49.0 Glucose Level 197 mg/dL (70-99) Calcium Level 8.2 mg/dL (8.5-10.1) Magnesium Level 1.9 mg/dL (1.8-2.4) Total Bilirubin 0.3 mg/dL (0.2-1.0) Direct Bilirubin 0.1 mg/dL (0.0-0.2) Aspartate Amino Transf (AST/SGOT) 64 U/L (15-37) Alanine Aminotransferase (ALT/SGPT) 42 U/L (14-59) Alkaline Phosphatase 72 U/L (46-116) Total Protein 7.1 g/dL (6.4-8.2) Albumin 3.8 g/dL (3.4-5.0) Ethyl Alcohol Level 269 mg/dL (0-10) Urine Collection Type Unknown Urine Color Yellow Urine Clarity Clear Urine pH 5.5 (<5.0-8.0) Urine Specific [place] 1.020 (1.000-1.030) Urine Protein 100 mg/dL (NEG-TRACE) Urine Glucose (UA) Negative mg/dL (NEG) Urine Ketones (Stick) Negative mg/dL (NEG) Urine Blood Negative (NEG) Urine Nitrite Negative (NEG) Urine Bilirubin Negative (NEG) Urine Urobilinogen Dipstick 0.2 mg/dL (0.2 mg/dL) Urine Leukocyte Esterase Negative (NEG) Urine RBC 0 /HPF (0-2) Urine WBC 1-4 /HPF (0-4) Urine Squamous Epithelial Cells Mod /LPF Urine Transitional Epithelial Cells Few /LPF Urine Bacteria 0 /HPF (0-FEW) Urine Hyaline Casts Many /HPF Urine Mucus Marked /LPF Urine Opiates Screen Neg (NEG) Urine Methadone Screen Neg (NEG) Urine Barbiturates Neg (NEG) Urine Phencyclidine Screen Neg (NEG) Urine Amphetamine/Methamphetamine Neg (NEG) Urine Benzodiazepines Screen Neg (NEG) Urine Cocaine Screen Neg (NEG) Urine Cannabinoids Screen Neg (NEG) Urine Ethyl Alcohol Pos (NEG) Coronavirus (COVID-19)(PCR) Negative (NEGATIVE) Laboratory Tests Test 11/14/19 20:21 11/14/19 21:04 11/14/19 23:27 White Blood Count 7.5 x10^3/uL (4.0-11.0) Red Blood Count 5.23 x10^6/uL (3.50-5.40) Hemoglobin 16.1 g/dL (12.0-15.5) Hematocrit 46.9 % (36.0-47.0) Mean Corpuscular Volume 90 fL (79-100) Mean Corpuscular Hemoglobin 31 pg (25-35) Mean Corpuscular Hemoglobin Concent 34 g/dL (31-37) Red Cell Distribution Width 14.0 % (11.5-14.5) Platelet Count 494 x10^3/uL (140-400) Neutrophils (%) (Auto) 47 % (31-73) Lymphocytes (%) (Auto) 47 % (24-48) Monocytes (%) (Auto) 4 % (0-9) Eosinophils (%) (Auto) 1 % (0-3) Basophils (%) (Auto) 1 % (0-3) Neutrophils # (Auto) 3.5 x10^3/uL (1.8-7.7) Lymphocytes # (Auto) 3.5 x10^3/uL (1.0-4.8) Monocytes # (Auto) 0.3 x10^3/uL (0.0-1.1) Eosinophils # (Auto) 0.1 x10^3/uL (0.0-0.7) Basophils # (Auto) 0.0 x10^3/uL (0.0-0.2) Sodium Level 139 mmol/L (136-145) Potassium Level 3.6 mmol/L (3.5-5.1) Chloride Level 100 mmol/L (98-107) Carbon Dioxide Level 25 mmol/L (21-32) Anion Gap 14 (6-14) Blood Urea Nitrogen 18 mg/dL (7-20) Creatinine 1.2 mg/dL (0.6-1.0) Estimated GFR (Cockcroft-Gault) 49.0 Glucose Level 197 mg/dL (70-99) Calcium Level 8.2 mg/dL (8.5-10.1) Magnesium Level 1.9 mg/dL (1.8-2.4) Total Bilirubin 0.3 mg/dL (0.2-1.0) Direct Bilirubin 0.1 mg/dL (0.0-0.2) Aspartate Amino Transf (AST/SGOT) 64 U/L (15-37) Alanine Aminotransferase (ALT/SGPT) 42 U/L (14-59) Alkaline Phosphatase 72 U/L (46-116) Total Protein 7.1 g/dL (6.4-8.2) Albumin 3.8 g/dL (3.4-5.0) Ethyl Alcohol Level 269 mg/dL (0-10) Urine Collection Type Unknown Urine Color Yellow Urine Clarity Clear Urine pH 5.5 (<5.0-8.0) Urine Specific [place] 1.020 (1.000-1.030) Urine Protein 100 mg/dL (NEG-TRACE) Urine Glucose (UA) Negative mg/dL (NEG) Urine Ketones (Stick) Negative mg/dL (NEG) Urine Blood Negative (NEG) Urine Nitrite Negative (NEG) Urine Bilirubin Negative (NEG) Urine Urobilinogen Dipstick 0.2 mg/dL (0.2 mg/dL) Urine Leukocyte Esterase Negative (NEG) Urine RBC 0 /HPF (0-2) Urine WBC 1-4 /HPF (0-4) Urine Squamous Epithelial Cells Mod /LPF Urine Transitional Epithelial Cells Few /LPF Urine Bacteria 0 /HPF (0-FEW) Urine Hyaline Casts Many /HPF Urine Mucus Marked /LPF Urine Opiates Screen Neg (NEG) Urine Methadone Screen Neg (NEG) Urine Barbiturates Neg (NEG) Urine Phencyclidine Screen Neg (NEG) Urine Amphetamine/Methamphetamine Neg (NEG) Urine Benzodiazepines Screen Neg (NEG) Urine Cocaine Screen Neg (NEG) Urine Cannabinoids Screen Neg (NEG) Urine Ethyl Alcohol Pos (NEG) Coronavirus (COVID-19)(PCR) Negative (NEGATIVE) Diagnosis: Diagnosis: 1-major depressive disorder, recurrent, severe, without psychotic features. 2alcohol intoxication in context of alcohol use disorder. 3alcohol use disorder, recurrent, moderate to severe. 4generalized anxiety disorder. Assessment: 53-year-old female admitted with suicidal attempt and alcohol intoxication. Apparently, psychosocial circumstances including recent COVID pandemic other major precipitating factor. She appears evasive and minimizing alcohol use and her suicidal attempt. Given her limited insight about the severity of the s ituation, impulsivity, distress, and high anxiety, she is in imminent danger of self-harm. Recommending inpatient psych admission. Meanwhile, Prozac can be increased to 40 mg daily. Plan: 1patient is in imminent danger to herself. 2initiate involuntary hold if patient tries to leave AMA. 3increase Prozac to 40 mg daily for depression and anxiety. 4patient is informed regarding the decision. She appears upset. 5risk, benefits, alternatives of the treatment are discussed. She is in agreement with increasing Prozac. 6adverse drug reactions are discussed in detail. Thank you for involving inpatient care. MICHELINE VENTURA MD Nov 15, 2019 19:48
[2019-11-15] MEDS: MULTIVIT INFUSN,ADULT 4,VIT K 10 ML, THIAMINE INJ 100 MG, FOLIC ACID INJ 1 MG in IV NOR... IV SCH (20:43)
[2019-11-15] MEDS: GABAPENTIN 100 MG CAPSULE. PO SCH (20:58)
[2019-11-15] MEDS: LORazepam 1 MG TABLET PO SCH (20:58)
[2019-11-15] MEDS ORDERED: traZODone 50 MG TABLET. PO SCH ×2 (21:00)
--- NOTE | 2019-11-15 21:11 | NUR ---
Trazodone 150mg had duplicate order, one dose already given, pharmacy will discontinue one order.
[2019-11-15 22:36] VITALS: BP 127/86
--- NOTE | 2019-11-15 23:00 | NUR ---
At 19:00 PM, from report DONAL Arenas, Day shift nurse said that Patient came out of her room to ask to speak to day nurse, Patient told her that Patient was going to leave AMA, no matter what. This nurse called to speak with Attending Doctor, 20:[address] Swenson called back and said that he had just spoke with Dr. Jeronimo and that Patient cannot leave tonight, she cannot sign out AMA, for nurse to initiate involuntary hold if patient tries to leave AMA for Patient is in imminent danger to herself. explained to Patient that Dr. Swenson also agrees with Dr. Jeronimo even though Abisai from [facility] had already cleared her to go home and f/u with [facility] outpatient, and that he has other treatments for her r/t her alcohol level. Patient was very upset and said that she was going to leave no matter what, she continued on that she did not get a dinner tray tonight and was starving. Kitchen was closed and she did not want a sandwich box, she was adamant about leaving AMA, she was not going to stay. This nurse called her son and had phone on speaker, hearing Bao, her son's voice and being able to let him know that she was alright, helped calm her down. She then agreed with Dr. Swenson to stay for the night for treatments, new IV started and Banana bag started, administered scheduled Ativan and Trazodone, Patient felt better and thanked this nurse for being Patient and honest with her and treating her like a person who made a terrible mistake instead of making her feel worst. Other Nurse on unit thought that she was still trying to go against Medical advise and called security for a code matos without consulting with this nurse, security came up to unit to find out that everything was under control and this nurse did not asked for code matos to be call, Patient was very cooperative with this nurse, there was no need for code matos, security cancelled code, This nurse asked security if it was okay for Patient to have family drop off hamburger from [employer], security stated that it was okay for this one time and that they would call up here once son drop food of to security, DONAL Hardy other Nurse on unit went down to security and brought food up, guest ate and then finally went to sleep.
[2019-11-16] MEDS: LORazepam 1 MG TABLET PO SCH ×4 (02:00→15:44)
[2019-11-16 03:00] VITALS: BP 113/73
[2019-11-16 03:08] LABS: HEMOGLOBIN A1C 5.6 % (4.8-5.6)
[2019-11-16 04:57] LABS: BASO # 0.1 x10^3/uL (0.0-0.2); BASO % 1 % (0-3); EOS % 0 % (0-3); HEMATOCRIT 36.2 % (36.0-47.0); HEMOGLOBIN 12.4 g/dL (12.0-15.5); LYMPH % 24 % (24-48); MEAN CORPUSCULAR HEMOGLOBIN 31 pg (25-35); MEAN CORPUSCULAR HGB CONC 34 g/dL (31-37); MEAN CORPUSCULAR VOLUME 90 fL (79-100); MONO # 0.8 x10^3/uL (0.0-1.1); MONO % 7 % (0-9); NEUT # 8.6 x10^3/uL (1.8-7.7); NEUT % 68 % (31-73); PLATELET COUNT 339 x10^3/uL (140-400); RED BLOOD COUNT 4.04 x10^6/uL (3.50-5.40); RED CELL DISTRIBUTION WIDTH 13.6 % (11.5-14.5); WHITE BLOOD COUNT 12.6 x10^3/uL (4.0-11.0)
[2019-11-16 05:18] LABS: CALCIUM 8.7 mg/dL (8.5-10.1); CREATININE 0.9 mg/dL (0.6-1.0); GFR 68.3; POTASSIUM 3.9 mmol/L (3.5-5.1)
[2019-11-16 07:01] VITALS: BP 133/89
[2019-11-16] MEDS ORDERED: FLUoxetine HCL 20 MG CAPSULE PO SCH (08:00)
[2019-11-16] MEDS: GABAPENTIN 100 MG CAPSULE. PO SCH ×2 (09:07→15:44)
[2019-11-16] MEDS: buPROPion XL 150 MG TAB.ER.24H. PO SCH (09:10)
[2019-11-16] MEDS: NALTREXONE HCL 50 MG TABLET. PO SCH (09:10)
[2019-11-16] MEDS: MULTIVIT INFUSN,ADULT 4,VIT K 10 ML, THIAMINE INJ 100 MG, FOLIC ACID INJ 1 MG in IV NOR... IV SCH (09:11)
[2019-11-16] MEDS: LUBIPROSTONE 24 MCG CAPSULE PO SCH ×2 (09:11→17:12)
--- NOTE | 2019-11-16 10:48 | NUR ---
LALO following. Discussed with RN, pt was cleared by PAT to discharge home and follow up with outpatient mental health. Dr. Jeronimo is not okay with pt discharging and has placed a hold on pt if she tries to leave - Dr. Swenson is in agreement with Dr. Jeronimo. Per RN, pt reporting she is not suicidal and was not intending to end her life, just wanted to get help and get her meds adjusted. LALO contacted Tish with PAT to have Abisai return to see patient and speak with Dr. Jeronimo. Pt does not have criteria to enter a psych placement per PAT. LALO paged Dr. Swenson to discuss this case - awaiting call back. SW to reach out to Dr. Jeronimo to discuss how he thinks this will work in terms of placement and a hold. Pt reported to RN that she and Dr. Jeronimo did not see "eye to eye" during consultation. LALO will continue to follow. Addendum: 11/16/19 at 1627 by ERNESTO MAY LALO spoke with Dr. Jeronimo to determine plan if is not approved for psych placement through the state. Dr. Jeronimo advised pt will be accepted because he knows the criteria and despite pt denying SI today, pt had a suicidal attempt yesterday so this will qualify her. LALO questioned Dr. Jeronimo on a back up plan if for some reason the pt is denied. Dr. Jeronimo advised if an adult can be with pt until pt is seen by a therapist then he may do a safety plan and discharge pt. LALO notified Dr. Jeronimo that pt is calling her insurance to get names of therapists and psychiatrists to make appointments with after discharge. LALO spoke with Dr. Swenson, Dr. Swenson advised he would not discharge patient because she is too high risk and will go home and commit suicide. LALO notified Dr. Swenson of conversation with Dr. Jeronimo. LALO spoke with JOSE MIGUEL Barone, he advised he spoke with Dr. Jeronimo, Dr. Jeronimo is coming in to discharge pt as he has spoken with the pt's son. Abisai advised patient has been denied per the state screening for any placement because she does not meet criteria. LALO paged Dr. Swenson overhead twice with no return call. Pt has been cleared psychiatrically to discharge.
[2019-11-16 11:00] VITALS: BP 123/81
--- NOTE | 2019-11-16 12:22 | PDOC ---
PROGRESS NOTES Chief Complaint Chief Complaint ASSSESSMENT major depressive disorder WITH SI alcohol intoxication alcohol use disorder generalized anxiety disorder. Leukocytosis PLAN place on 1:1 obs. patient imminent danger to herself. patient can't be discharged. involuntary hold if patient tries to leave AMA. per psych increase Prozac to 40 mg daily for depression and anxiety. prn ativan and scheduled gabapentin for etoh cravings follow wbc apprec psych input History of Present Illness History of Present Illness discussed with patient and still wants to leave. I have advised her she can't leave as she is a danger to self. Vitals Vitals Vital Signs Date Time Temp Pulse Resp B/P (MAP) Pulse Ox O2 Delivery O2 Flow Rate FiO2 11/16/19 11:00 98.3 90 18 123/81 (95) 98 Room Air 98.3 Physical Exam General: Alert, Oriented X3 Heart: Regular rate Lungs: Clear, Wheezing Skin: No rashes, No breakdown Labs LABS Laboratory Tests Test 11/16/19 02:52 White Blood Count 12.6 x10^3/uL (4.0-11.0) Red Blood Count 4.04 x10^6/uL (3.50-5.40) Hemoglobin 12.4 g/dL (12.0-15.5) Hematocrit 36.2 % (36.0-47.0) Mean Corpuscular Volume 90 fL (79-100) Mean Corpuscular Hemoglobin 31 pg (25-35) Mean Corpuscular Hemoglobin Concent 34 g/dL (31-37) Red Cell Distribution Width 13.6 % (11.5-14.5) Platelet Count 339 x10^3/uL (140-400) Neutrophils (%) (Auto) 68 % (31-73) Lymphocytes (%) (Auto) 24 % (24-48) Monocytes (%) (Auto) 7 % (0-9) Eosinophils (%) (Auto) 0 % (0-3) Basophils (%) (Auto) 1 % (0-3) Neutrophils # (Auto) 8.6 x10^3/uL (1.8-7.7) Lymphocytes # (Auto) 3.0 x10^3/uL (1.0-4.8) Monocytes # (Auto) 0.8 x10^3/uL (0.0-1.1) Eosinophils # (Auto) 0.0 x10^3/uL (0.0-0.7) Basophils # (Auto) 0.1 x10^3/uL (0.0-0.2) Sodium Level 138 mmol/L (136-145) Potassium Level 3.9 mmol/L (3.5-5.1) Chloride Level 102 mmol/L (98-107) Carbon Dioxide Level 26 mmol/L (21-32) Anion Gap 10 (6-14) Blood Urea Nitrogen 21 mg/dL (7-20) Creatinine 0.9 mg/dL (0.6-1.0) Estimated GFR (Cockcroft-Gault) 68.3 Glucose Level 107 mg/dL (70-99) Calcium Level 8.7 mg/dL (8.5-10.1) Assessment and Plan Assessmemt and Plan Problems Medical Problems: (1) Allergic reaction caused by a drug Status: Acute (2) Suicide attempt Status: Acute Comment Review of Relevant I have reviewed the following items saqib (where applicable) has been applied. Labs Laboratory Tests Test 11/14/19 20:21 11/14/19 21:04 11/14/19 23:27 11/16/19 02:52 White Blood Count 7.5 x10^3/uL (4.0-11.0) 12.6 x10^3/uL (4.0-11.0) Red Blood Count 5.23 x10^6/uL (3.50-5.40) 4.04 x10^6/uL (3.50-5.40) Hemoglobin 16.1 g/dL (12.0-15.5) 12.4 g/dL (12.0-15.5) Hematocrit 46.9 % (36.0-47.0) 36.2 % (36.0-47.0) Mean Corpuscular Volume 90 fL (79-100) 90 fL (79-100) Mean Corpuscular Hemoglobin 31 pg (25-35) 31 pg (25-35) Mean Corpuscular Hemoglobin Concent 34 g/dL (31-37) 34 g/dL (31-37) Red Cell Distribution Width 14.0 % (11.5-14.5) 13.6 % (11.5-14.5) Platelet Count 494 x10^3/uL (140-400) 339 x10^3/uL (140-400) Neutrophils (%) (Auto) 47 % (31-73) 68 % (31-73) Lymphocytes (%) (Auto) 47 % (24-48) 24 % (24-48) Monocytes (%) (Auto) 4 % (0-9) 7 % (0-9) Eosinophils (%) (Auto) 1 % (0-3) 0 % (0-3) Basophils (%) (Auto) 1 % (0-3) 1 % (0-3) Neutrophils # (Auto) 3.5 x10^3/uL (1.8-7.7) 8.6 x10^3/uL (1.8-7.7) Lymphocytes # (Auto) 3.5 x10^3/uL (1.0-4.8) 3.0 x10^3/uL (1.0-4.8) Monocytes # (Auto) 0.3 x10^3/uL (0.0-1.1) 0.8 x10^3/uL (0.0-1.1) Eosinophils # (Auto) 0.1 x10^3/uL (0.0-0.7) 0.0 x10^3/uL (0.0-0.7) Basophils # (Auto) 0.0 x10^3/uL (0.0-0.2) 0.1 x10^3/uL (0.0-0.2) Sodium Level 139 mmol/L (136-145) 138 mmol/L (136-145) Potassium Level 3.6 mmol/L (3.5-5.1) 3.9 mmol/L (3.5-5.1) Chloride Level 100 mmol/L (98-107) 102 mmol/L (98-107) Carbon Dioxide Level 25 mmol/L (21-32) 26 mmol/L (21-32) Anion Gap 14 (6-14) 10 (6-14) Blood Urea Nitrogen 18 mg/dL (7-20) 21 mg/dL (7-20) Creatinine 1.2 mg/dL (0.6-1.0) 0.9 mg/dL (0.6-1.0) Estimated GFR (Cockcroft-Gault) 49.0 68.3 Glucose Level 197 mg/dL (70-99) 107 mg/dL (70-99) Hemoglobin A1c 5.6 % (4.8-5.6) Calcium Level 8.2 mg/dL (8.5-10.1) 8.7 mg/dL (8.5-10.1) Magnesium Level 1.9 mg/dL (1.8-2.4) Total Bilirubin 0.3 mg/dL (0.2-1.0) Direct Bilirubin 0.1 mg/dL (0.0-0.2) Aspartate Amino Transf (AST/SGOT) 64 U/L (15-37) Alanine Aminotransferase (ALT/SGPT) 42 U/L (14-59) Alkaline Phosphatase 72 U/L (46-116) Total Protein 7.1 g/dL (6.4-8.2) Albumin 3.8 g/dL (3.4-5.0) Ethyl Alcohol Level 269 mg/dL (0-10) Urine Collection Type Unknown Urine Color Yellow Urine Clarity Clear Urine pH 5.5 (<5.0-8.0) Urine Specific [place] 1.020 (1.000-1.030) Urine Protein 100 mg/dL (NEG-TRACE) Urine Glucose (UA) Negative mg/dL (NEG) Urine Ketones (Stick) Negative mg/dL (NEG) Urine Blood Negative (NEG) Urine Nitrite Negative (NEG) Urine Bilirubin Negative (NEG) Urine Urobilinogen Dipstick 0.2 mg/dL (0.2 mg/dL) Urine Leukocyte Esterase Negative (NEG) Urine RBC 0 /HPF (0-2) Urine WBC 1-4 /HPF (0-4) Urine Squamous Epithelial Cells Mod /LPF Urine Transitional Epithelial Cells Few /LPF Urine Bacteria 0 /HPF (0-FEW) Urine Hyaline Casts Many /HPF Urine Mucus Marked /LPF Urine Opiates Screen Neg (NEG) Urine Methadone Screen Neg (NEG) Urine Barbiturates Neg (NEG) Urine Phencyclidine Screen Neg (NEG) Urine Amphetamine/Methamphetamine Neg (NEG) Urine Benzodiazepines Screen Neg (NEG) Urine Cocaine Screen Neg (NEG) Urine Cannabinoids Screen Neg (NEG) Urine Ethyl Alcohol Pos (NEG) Coronavirus (COVID-19)(PCR) Negative (NEGATIVE) Laboratory Tests Test 11/16/19 02:52 White Blood Count 12.6 x10^3/uL (4.0-11.0) Red Blood Count 4.04 x10^6/uL (3.50-5.40) Hemoglobin 12.4 g/dL (12.0-15.5) Hematocrit 36.2 % (36.0-47.0) Mean Corpuscular Volume 90 fL (79-100) Mean Corpuscular Hemoglobin 31 pg (25-35) Mean Corpuscular Hemoglobin Concent 34 g/dL (31-37) Red Cell Distribution Width 13.6 % (11.5-14.5) Platelet Count 339 x10^3/uL (140-400) Neutrophils (%) (Auto) 68 % (31-73) Lymphocytes (%) (Auto) 24 % (24-48) Monocytes (%) (Auto) 7 % (0-9) Eosinophils (%) (Auto) 0 % (0-3) Basophils (%) (Auto) 1 % (0-3) Neutrophils # (Auto) 8.6 x10^3/uL (1.8-7.7) Lymphocytes # (Auto) 3.0 x10^3/uL (1.0-4.8) Monocytes # (Auto) 0.8 x10^3/uL (0.0-1.1) Eosinophils # (Auto) 0.0 x10^3/uL (0.0-0.7) Basophils # (Auto) 0.1 x10^3/uL (0.0-0.2) Sodium Level 138 mmol/L (136-145) Potassium Level 3.9 mmol/L (3.5-5.1) Chloride Level 102 mmol/L (98-107) Carbon Dioxide Level 26 mmol/L (21-32) Anion Gap 10 (6-14) Blood Urea Nitrogen 21 mg/dL (7-20) Creatinine 0.9 mg/dL (0.6-1.0) Estimated GFR (Cockcroft-Gault) 68.3 Glucose Level 107 mg/dL (70-99) Calcium Level 8.7 mg/dL (8.5-10.1) Medications Current Medications Diphenhydramine HCl (Benadryl) 50 mg STK-MED ONCE .ROUTE ; Start 11/14/19 at 20:13; Stop 11/14/19 at 20:13; Status DC Sodium Chloride 1,000 ml @ 1,000 mls/hr Q1H IV Last administered on 11/14/19at 20:11; Start 11/14/19 at 20:11; Stop 11/14/19 at 21:10; Status DC Diphenhydramine HCl (Benadryl) 50 mg 1X ONCE IVP Last administered on 11/14/19at 20:20; Start 11/14/19 at 20:15; Stop 11/14/19 at 20:16; Status DC Famotidine (Pepcid Vial) 20 mg 1X ONCE IVP Last administered on 11/14/19at 20:20; Start 11/14/19 at 20:15; Stop 11/14/19 at 20:16; Status DC Methylprednisolone Sodium Succinate (SOLU-Medrol 125MG VIAL) 125 mg 1X ONCE IV Last administered on 11/14/19at 20:28; Start 11/14/19 at 20:15; Stop 11/14/19 at 20:16; Status DC Epinephrine HCl (Adrenalin) 0.3 mg 1X ONCE SQ Last administered on 11/14/19at 20:28; Start 11/14/19 at 20:15; Stop 11/14/19 at 20:16; Status DC Famotidine (Pepcid Vial) 20 mg STK-MED ONCE .ROUTE ; Start 11/14/19 at 20:13; Stop 11/14/19 at 20:13; Status DC Epinephrine HCl (Adrenalin) 1 mg STK-MED ONCE .ROUTE ; Start 11/14/19 at 20:13; Stop 11/14/19 at 20:13; Status DC Methylprednisolone Sodium Succinate (SOLU-Medrol 125MG VIAL) 125 mg STK-MED ONCE .ROUTE ; Start 11/14/19 at 20:13; Stop 11/14/19 at 20:13; Status DC Zolpidem Tartrate (Ambien) 5 mg PRN QHS PRN PO INSOMNIA, MAY REPEAT X1 Last administered on 11/15/19at 01:41; Start 11/15/19 at 01:30 Trazodone HCl (Desyrel) 50 mg PRN QHS PRN PO INSOMNIA Last administered on 11/15/19at 01:51; Start 11/15/19 at 01:45; Stop 11/15/19 at 04:06; Status DC Trazodone HCl (Desyrel) 100 mg 1X ONCE PO Last administered on 11/15/19at 04:10; Start 11/15/19 at 04:30; Stop 11/15/19 at 04:31; Status DC Trazodone HCl (Desyrel) 150 mg QHS PO Last administered on 11/15/19at 20:58; Start 11/15/19 at 21:00; Stop 11/15/19 at 21:09; Status DC Bupropion HCl (Wellbutrin Xl) 300 mg DAILY PO Last administered on 11/16/19at 09:10; Start 11/15/19 at 15:30 Cyclobenzaprine HCl (Flexeril) 10 mg PRN TID PRN PO MUSCLE SPASMS; Start 11/15/19 at 15:15 Fluoxetine HCl (PROzac) 20 mg DAILYWBKFT PO Last administered on 11/15/19at 15:40; Start 11/15/19 at 15:30; Stop 11/15/19 at 19:49; Status DC Methocarbamol (Robaxin) 750 mg PRN TID PRN PO MUSCLE SPASMS- 2ND CHOICE; Start 11/15/19 at 15:15 Lubiprostone (Amitiza) 24 mcg BIDWMEALS PO ; Start 11/15/19 at 17:00 Naltrexone HCl (ReVia) 50 mg DAILY PO Last administered on 11/16/19at 09:10; Start 11/15/19 at 15:30 Trazodone HCl (Desyrel) 150 mg QHS PO ; Start 11/15/19 at 21:00 Fluoxetine HCl (PROzac) 40 mg DAILYWBKFT PO Last administered on 11/16/19at 09:10; Start 11/16/19 at 08:00 Gabapentin (Neurontin) 100 mg TID PO Last administered on 11/16/19at 09:07; Start 11/15/19 at 21:00 Lorazepam (Ativan Inj) 2 mg PRN Q4HRS PRN IVP ANXIETY / AGITATION Last administered on 11/15/19at 22:32; Start 11/15/19 at 20:00 Multivitamins 10 ml/Thiamine HCl 100 mg/Folic Acid 1 mg/Sodium Chloride 1,011.2 ml @ 100 mls/ hr DAILY IV Last administered on 11/16/19at 09:11; Start 11/15/19 at 20:00; Stop 11/19/19 at 19:07 Lorazepam (Ativan) 2 mg Q6H PO Last administered on 11/16/19at 09:08; Start at 20:00; Stop 11/17/19 at 02:01 Active Scripts Active Reported Naltrexone Hcl 50 Mg Tablet 50 Mg PO DAILY Robaxin-750 (Methocarbamol) 750 Mg Tablet 1 Tab PO TID PRN 30 Days Cyclobenzaprine Hcl 10 Mg Tablet 1 Tab PO TID PRN Bupropion Xl (Bupropion Hcl) 150 Mg Tab.er.24h 300 Mg PO DAILY Prozac (Fluoxetine Hcl) 20 Mg Capsule 1 Cap PO DAILYWBKFT Buspirone Hcl 5 Mg Tablet 1 Tab PO PRN PRN Trazodone Hcl 150 Mg Tablet 1 Tab PO QHS Linzess (Linaclotide) 145 Mcg Capsule 145 Mcg PO DAILY07 Vitals/I & O Vital Sign - Last 24 Hours 11/15/19 11/15/19 11/15/19 11/15/19 15:00 19:00 19:32 22:36 Temp 98.7 98.2 97.7 98.7 98.2 97.7 Pulse 82 80 86 Resp 20 18 18 B/P (MAP) 121/81 (94) 130/70 (90) 127/86 (100) Pulse Ox 96 96 97 O2 Delivery Room Air Room Air Room Air Room Air 11/16/19 11/16/19 11/16/19 11/16/19 03:00 07:01 07:45 11:00 Temp 97.0 97.6 98.3 97.0 97.6 98.3 Pulse 88 88 90 Resp 18 18 18 B/P (MAP) 113/73 (86) 133/89 (104) 123/81 (95) Pulse Ox 97 99 98 O2 Delivery Room Air Room Air Room Air Room Air Intake and Output 11/15/19 11/15/19 11/16/19 15:00 23:00 07:00 Intake Total 120 ml 1000 ml 1491.2 ml Balance 120 ml 1000 ml 1491.2 ml MARIBELL DAVILA MD Nov 16, 2019 12:22
[2019-11-16 15:02] VITALS: BP 133/94
--- NOTE | 2019-11-16 18:16 | PDOC3 ---
Discharge Summary Date of Admission: Nov 14, 2019 Date of Discharge: Nov 16, 2019 Follow-Up: 3-5 days Admitting Diagnosis comment: Chief Complaint discharge dx major depressive disorder WITH SI resolved alcohol intoxication alcohol use disorder generalized anxiety disorder. Leukocytosis PLAN per sharron Cameron for d/c to outpt care tonight prn ativan and scheduled gabapentin for etoh cravings follow [facility] apprec psych input inc prozac to 40 mg po daily FINAL DIAGNOSIS Problems Medical Problems: (1) Allergic reaction caused by a drug Status: Acute (2) Suicide attempt Status: Acute Brief Hospital Course Ms. Mayer is a 43 old [sex] who presented with [alcohol abuse and depression ] CONDITION AT DISCHARGE: Improved Discharge Medications Current Medications Diphenhydramine HCl (Benadryl) 50 mg STK-MED ONCE .ROUTE ; Start 11/14/19 at 20:13; Stop 11/14/19 at 20:13; Status DC Sodium Chloride 1,000 ml @ 1,000 mls/hr Q1H IV Last administered on 11/14/19at 20:11; Start 11/14/19 at 20:11; Stop 11/14/19 at 21:10; Status DC Diphenhydramine HCl (Benadryl) 50 mg 1X ONCE IVP Last administered on 11/14/19at 20:20; Start 11/14/19 at 20:15; Stop 11/14/19 at 20:16; Status DC Famotidine (Pepcid Vial) 20 mg 1X ONCE IVP Last administered on 11/14/19at 20:20; Start 11/14/19 at 20:15; Stop 11/14/19 at 20:16; Status DC Methylprednisolone Sodium Succinate (SOLU-Medrol 125MG VIAL) 125 mg 1X ONCE IV Last administered on 11/14/19at 20:28; Start 11/14/19 at 20:15; Stop 11/14/19 at 20:16; Status DC Epinephrine HCl (Adrenalin) 0.3 mg 1X ONCE SQ Last administered on 11/14/19at 20:28; Start 11/14/19 at 20:15; Stop 11/14/19 at 20:16; Status DC Famotidine (Pepcid Vial) 20 mg STK-MED ONCE .ROUTE ; Start 11/14/19 at 20:13; Stop 11/14/19 at 20:13; Status DC Epinephrine HCl (Adrenalin) 1 mg STK-MED ONCE .ROUTE ; Start 11/14/19 at 20:13; Stop 11/14/19 at 20:13; Status DC Methylprednisolone Sodium Succinate (SOLU-Medrol 125MG VIAL) 125 mg STK-MED ONCE .ROUTE ; Start 11/14/19 at 20:13; Stop 11/14/19 at 20:13; Status DC Zolpidem Tartrate (Ambien) 5 mg PRN QHS PRN PO INSOMNIA, MAY REPEAT X1 Last administered on 11/15/19at 01:41; Start 11/15/19 at 01:30 Trazodone HCl (Desyrel) 50 mg PRN QHS PRN PO INSOMNIA Last administered on 11/15/19at 01:51; Start 11/15/19 at 01:45; Stop 11/15/19 at 04:06; Status DC Trazodone HCl (Desyrel) 100 mg 1X ONCE PO Last administered on 11/15/19at 04:10; Start 11/15/19 at 04:30; Stop 11/15/19 at 04:31; Status DC Trazodone HCl (Desyrel) 150 mg QHS PO Last administered on 11/15/19at 20:58; Start 11/15/19 at 21:00; Stop 11/15/19 at 21:09; Status DC Bupropion HCl (Wellbutrin Xl) 300 mg DAILY PO Last administered on 11/16/19at 09:10; Start 11/15/19 at 15:30 Cyclobenzaprine HCl (Flexeril) 10 mg PRN TID PRN PO MUSCLE SPASMS; Start 11/15/19 at 15:15 Fluoxetine HCl (PROzac) 20 mg DAILYWBKFT PO Last administered on 11/15/19at 15:40; Start 11/15/19 at 15:30; Stop 11/15/19 at 19:49; Status DC Methocarbamol (Robaxin) 750 mg PRN TID PRN PO MUSCLE SPASMS- 2ND CHOICE; Start 11/15/19 at 15:15 Lubiprostone (Amitiza) 24 mcg BIDWMEALS PO ; Start 11/15/19 at 17:00 Naltrexone HCl (ReVia) 50 mg DAILY PO Last administered on 11/16/19at 09:10; Start 11/15/19 at 15:30 Trazodone HCl (Desyrel) 150 mg QHS PO ; Start 11/15/19 at 21:00 Fluoxetine HCl (PROzac) 40 mg DAILYWBKFT PO Last administered on 11/16/19at 09:10; Start 11/16/19 at 08:00 Gabapentin (Neurontin) 100 mg TID PO Last administered on 11/16/19at 15:44; Start 11/15/19 at 21:00 Lorazepam (Ativan Inj) 2 mg PRN Q4HRS PRN IVP ANXIETY / AGITATION Last administered on 11/16/19at 12:47; Start 11/15/19 at 20:00 Multivitamins 10 ml/Thiamine HCl 100 mg/Folic Acid 1 mg/Sodium Chloride 1,011.2 ml @ 100 mls/ hr DAILY IV Last administered on 11/16/19at 09:11; Start 11/15/19 at 20:00; Stop 11/19/19 at 19:07 Lorazepam (Ativan) 2 mg Q6H PO Last administered on 11/16/19at 15:44; Start 11/15/19 at 20:00; Stop 11/17/19 at 02:01 Active Scripts Active Reported Naltrexone Hcl 50 Mg Tablet 50 Mg PO DAILY Robaxin-750 (Methocarbamol) 750 Mg Tablet 1 Tab PO TID PRN 30 Days Cyclobenzaprine Hcl 10 Mg Tablet 1 Tab PO TID PRN Bupropion Xl (Bupropion Hcl) 150 Mg Tab.er.24h 300 Mg PO DAILY Prozac (Fluoxetine Hcl) 20 Mg Capsule 1 Cap PO DAILYWBKFT Buspirone Hcl 5 Mg Tablet 1 Tab PO PRN PRN Trazodone Hcl 150 Mg Tablet 1 Tab PO QHS Linzess (Linaclotide) 145 Mcg Capsule 145 Mcg PO DAILY07 Vital Signs Vital Signs Date Time Temp Pulse Resp B/P (MAP) Pulse Ox O2 Delivery O2 Flow Rate FiO2 11/16/19 15:02 97.6 90 18 133/94 (107) 96 Room Air 97.6 Labs Laboratory Tests Test 11/14/19 20:21 11/14/19 21:04 11/14/19 23:27 11/16/19 02:52 White Blood Count 7.5 x10^3/uL (4.0-11.0) 12.6 x10^3/uL (4.0-11.0) Red Blood Count 5.23 x10^6/uL (3.50-5.40) 4.04 x10^6/uL (3.50-5.40) Hemoglobin 16.1 g/dL (12.0-15.5) 12.4 g/dL (12.0-15.5) Hematocrit 46.9 % (36.0-47.0) 36.2 % (36.0-47.0) Mean Corpuscular Volume 90 fL (79-100) 90 fL (79-100) Mean Corpuscular Hemoglobin 31 pg (25-35) 31 pg (25-35) Mean Corpuscular Hemoglobin Concent 34 g/dL (31-37) 34 g/dL (31-37) Red Cell Distribution Width 14.0 % (11.5-14.5) 13.6 % (11.5-14.5) Platelet Count 494 x10^3/uL (140-400) 339 x10^3/uL (140-400) Neutrophils (%) (Auto) 47 % (31-73) 68 % (31-73) Lymphocytes (%) (Auto) 47 % (24-48) 24 % (24-48) Monocytes (%) (Auto) 4 % (0-9) 7 % (0-9) Eosinophils (%) (Auto) 1 % (0-3) 0 % (0-3) Basophils (%) (Auto) 1 % (0-3) 1 % (0-3) Neutrophils # (Auto) 3.5 x10^3/uL (1.8-7.7) 8.6 x10^3/uL (1.8-7.7) Lymphocytes # (Auto) 3.5 x10^3/uL (1.0-4.8) 3.0 x10^3/uL (1.0-4.8) Monocytes # (Auto) 0.3 x10^3/uL (0.0-1.1) 0.8 x10^3/uL (0.0-1.1) Eosinophils # (Auto) 0.1 x10^3/uL (0.0-0.7) 0.0 x10^3/uL (0.0-0.7) Basophils # (Auto) 0.0 x10^3/uL (0.0-0.2) 0.1 x10^3/uL (0.0-0.2) Sodium Level 139 mmol/L (136-145) 138 mmol/L (136-145) Potassium Level 3.6 mmol/L (3.5-5.1) 3.9 mmol/L (3.5-5.1) Chloride Level 100 mmol/L (98-107) 102 mmol/L (98-107) Carbon Dioxide Level 25 mmol/L (21-32) 26 mmol/L (21-32) Anion Gap 14 (6-14) 10 (6-14) Blood Urea Nitrogen 18 mg/dL (7-20) 21 mg/dL (7-20) Creatinine 1.2 mg/dL (0.6-1.0) 0.9 mg/dL (0.6-1.0) Estimated GFR (Cockcroft-Gault) 49.0 68.3 Glucose Level 197 mg/dL (70-99) 107 mg/dL (70-99) Hemoglobin A1c 5.6 % (4.8-5.6) Calcium Level 8.2 mg/dL (8.5-10.1) 8.7 mg/dL (8.5-10.1) Magnesium Level 1.9 mg/dL (1.8-2.4) Total Bilirubin 0.3 mg/dL (0.2-1.0) Direct Bilirubin 0.1 mg/dL (0.0-0.2) Aspartate Amino Transf (AST/SGOT) 64 U/L (15-37) Alanine Aminotransferase (ALT/SGPT) 42 U/L (14-59) Alkaline Phosphatase 72 U/L (46-116) Total Protein 7.1 g/dL (6.4-8.2) Albumin 3.8 g/dL (3.4-5.0) Ethyl Alcohol Level 269 mg/dL (0-10) Urine Collection Type Unknown Urine Color Yellow Urine Clarity Clear Urine pH 5.5 (<5.0-8.0) Urine Specific [place] 1.020 (1.000-1.030) Urine Protein 100 mg/dL (NEG-TRACE) Urine Glucose (UA) Negative mg/dL (NEG) Urine Ketones (Stick) Negative mg/dL (NEG) Urine Blood Negative (NEG) Urine Nitrite Negative (NEG) Urine Bilirubin Negative (NEG) Urine Urobilinogen Dipstick 0.2 mg/dL (0.2 mg/dL) Urine Leukocyte Esterase Negative (NEG) Urine RBC 0 /HPF (0-2) Urine WBC 1-4 /HPF (0-4) Urine Squamous Epithelial Cells Mod /LPF Urine Transitional Epithelial Cells Few /LPF Urine Bacteria 0 /HPF (0-FEW) Urine Hyaline Casts Many /HPF Urine Mucus Marked /LPF Urine Opiates Screen Neg (NEG) Urine Methadone Screen Neg (NEG) Urine Barbiturates Neg (NEG) Urine Phencyclidine Screen Neg (NEG) Urine Amphetamine/Methamphetamine Neg (NEG) Urine Benzodiazepines Screen Neg (NEG) Urine Cocaine Screen Neg (NEG) Urine Cannabinoids Screen Neg (NEG) Urine Ethyl Alcohol Pos (NEG) Coronavirus (COVID-19)(PCR) Negative (NEGATIVE) Laboratory Tests Test 11/16/19 02:52 White Blood Count 12.6 x10^3/uL (4.0-11.0) Red Blood Count 4.04 x10^6/uL (3.50-5.40) Hemoglobin 12.4 g/dL (12.0-15.5) Hematocrit 36.2 % (36.0-47.0) Mean Corpuscular Volume 90 fL (79-100) Mean Corpuscular Hemoglobin 31 pg (25-35) Mean Corpuscular Hemoglobin Concent 34 g/dL (31-37) Red Cell Distribution Width 13.6 % (11.5-14.5) Platelet Count 339 x10^3/uL (140-400) Neutrophils (%) (Auto) 68 % (31-73) Lymphocytes (%) (Auto) 24 % (24-48) Monocytes (%) (Auto) 7 % (0-9) Eosinophils (%) (Auto) 0 % (0-3) Basophils (%) (Auto) 1 % (0-3) Neutrophils # (Auto) 8.6 x10^3/uL (1.8-7.7) Lymphocytes # (Auto) 3.0 x10^3/uL (1.0-4.8) Monocytes # (Auto) 0.8 x10^3/uL (0.0-1.1) Eosinophils # (Auto) 0.0 x10^3/uL (0.0-0.7) Basophils # (Auto) 0.1 x10^3/uL (0.0-0.2) Sodium Level 138 mmol/L (136-145) Potassium Level 3.9 mmol/L (3.5-5.1) Chloride Level 102 mmol/L (98-107) Carbon Dioxide Level 26 mmol/L (21-32) Anion Gap 10 (6-14) Blood Urea Nitrogen 21 mg/dL (7-20) Creatinine 0.9 mg/dL (0.6-1.0) Estimated GFR (Cockcroft-Gault) 68.3 Glucose Level 107 mg/dL (70-99) Calcium Level 8.7 mg/dL (8.5-10.1) Allergies Allergies Coded Allergies Type Severity Reaction Last Updated Verified Penicillins Allergy Severe Anaphylaxis 07/27/18 Yes Disposition/Orders: D/C to Home Justicifation of Admission Dx: Justifications for Admission: Justification of Admission Dx: Yes MELANIA MACDONALD MD Nov 16, 2019 18:16
[2019-11-16] MEDS ORDERED: GABA300C18 PO (18:42)
[2019-11-16 19:05] VITALS: BP 140/100
--- NOTE | 2019-11-16 19:28 | NUR ---
Discharge Note: Patient was discharged home with self care. Patients IV was discontinued without any complications per DRY CELL TESTER. Patient was given discharge summary/instructions, follow-ups, prescriptions and educational material. Patient did not have any further questions or concerns. Patient does have a plan to stay away from her alcohol cravings and has family and friend to support her. Patient is waiting for her ride to come pick her up.
--- NOTE | 2019-11-16 19:35 | NUR ---
Pt discharged home via wheelchair accompanied by son. All belongings accounted for, including medications from pharmacy.
--- NOTE | 2019-11-16 19:40 | PDOC ---
F/U PHYSCH PROG NOTE Subjective: female seen for follow-up. Information is reviewed with nursing staff. Except for leaving AMA, no major emotional or behavioral breakdown reported. Upon interview, she appears relaxed, however tearful. She is extremely guilty and remorseful regarding her attempt. Stating, she has a lot to live and would not like to make " stupid mistake" again in her life. Denies suicidal or homicidal thoughts intent or plan. Denies auditory or visual hallucinations. No evidence of steve, hypomania, agitation, or violent intent. Denies complicated alcohol withdrawal. Wanting something for alcohol craving. Tolerating medications, denies adverse drug reaction. Objective: Vital Signs: Vital Signs Date Time Temp Pulse Resp B/P (MAP) Pulse Ox O2 Delivery O2 Flow Rate FiO2 11/16/19 19:05 97.7 81 20 140/100 (113) 100 Room Air 97.7 Labs: Laboratory Tests Test 11/16/19 02:52 White Blood Count 12.6 x10^3/uL (4.0-11.0) H Red Blood Count 4.04 x10^6/uL (3.50-5.40) Hemoglobin 12.4 g/dL (12.0-15.5) Hematocrit 36.2 % (36.0-47.0) Mean Corpuscular Volume 90 fL (79-100) Mean Corpuscular Hemoglobin 31 pg (25-35) Mean Corpuscular Hemoglobin Concent 34 g/dL (31-37) Red Cell Distribution Width 13.6 % (11.5-14.5) Platelet Count 339 x10^3/uL (140-400) Neutrophils (%) (Auto) 68 % (31-73) Lymphocytes (%) (Auto) 24 % (24-48) Monocytes (%) (Auto) 7 % (0-9) Eosinophils (%) (Auto) 0 % (0-3) Basophils (%) (Auto) 1 % (0-3) Neutrophils # (Auto) 8.6 x10^3/uL (1.8-7.7) H Lymphocytes # (Auto) 3.0 x10^3/uL (1.0-4.8) Monocytes # (Auto) 0.8 x10^3/uL (0.0-1.1) Eosinophils # (Auto) 0.0 x10^3/uL (0.0-0.7) Basophils # (Auto) 0.1 x10^3/uL (0.0-0.2) Sodium Level 138 mmol/L (136-145) Potassium Level 3.9 mmol/L (3.5-5.1) Chloride Level 102 mmol/L (98-107) Carbon Dioxide Level 26 mmol/L (21-32) Anion Gap 10 (6-14) Blood Urea Nitrogen 21 mg/dL (7-20) H Creatinine 0.9 mg/dL (0.6-1.0) Estimated GFR (Cockcroft-Gault) 68.3 Glucose Level 107 mg/dL (70-99) H Calcium Level 8.7 mg/dL (8.5-10.1) Laboratory Tests 11/16/19 02:52 Laboratory Tests 11/16/19 02:52 Medications: Current Medications Medications (Trade) Dose Ordered Sig/Citlali Start Time Stop Time Status Last Admin Dose Admin Bupropion HCl (Wellbutrin Xl) 300 mg DAILY 11/15/19 15:30 11/16/19 09:10 300 MG Cyclobenzaprine HCl (Flexeril) 10 mg PRN TID PRN 11/15/19 15:15 Diphenhydramine HCl (Benadryl) 50 mg 1X ONCE 11/14/19 20:15 11/14/19 20:16 DC 11/14/19 20:20 50 MG Epinephrine HCl (Adrenalin) 1 mg STK-MED ONCE 11/14/19 20:13 11/14/19 20:13 DC Famotidine (Pepcid Vial) 20 mg STK-MED ONCE 11/14/19 20:13 11/14/19 20:13 DC Fluoxetine HCl (PROzac) 40 mg DAILYWBKFT 11/16/19 08:00 11/16/19 09:10 40 MG Gabapentin (Neurontin) 100 mg TID 11/15/19 21:00 11/16/19 15:44 100 MG Lorazepam (Ativan Inj) 2 mg PRN Q4HRS PRN 11/15/19 20:00 11/16/19 12:47 2 MG Lorazepam (Ativan) 2 mg Q6H 11/15/19 20:00 11/17/19 02:01 11/16/19 15:44 2 MG Lubiprostone (Amitiza) 24 mcg BIDWMEALS 11/15/19 17:00 Methocarbamol (Robaxin) 750 mg PRN TID PRN 11/15/19 15:15 Methylprednisolone Sodium Succinate (SOLU-Medrol 125MG VIAL) 125 mg STK-MED ONCE 11/14/19 20:13 11/14/19 20:13 DC Multivitamins 10 ml/Thiamine HCl 100 mg/Folic Acid 1 mg/Sodium Chloride 1,011.2 ml @ 100 mls/ hr DAILY 11/15/19 20:00 11/19/19 19:07 11/16/19 09:11 100 MLS/HR Naltrexone HCl (ReVia) 50 mg DAILY 11/15/19 15:30 11/16/19 09:10 50 MG Sodium Chloride 1,000 ml @ 1,000 mls/hr Q1H 11/14/19 20:11 11/14/19 21:10 DC 11/14/19 20:11 1,000 MLS/HR Trazodone HCl (Desyrel) 150 mg QHS 11/15/19 21:00 Zolpidem Tartrate (Ambien) 5 mg PRN QHS PRN 11/15/19 01:30 11/15/19 01:41 5 MG Physical Exam: Mental Status Exam: female appears as stated age. Cooperative and interactive Fully alert and oriented. Thought processes linear, coherent and goal-directed. Denies auditory or visual hallucinations. No abnormal perceptions noted Denies suicidal or homicidal thoughts. She is guilty and remorseful about her suicide. Mood is better Affect is labile Insight is fair Judgment is fair Impulse control is fair. Attention span and concentration fair Recent and remote memory intact. Physical Exam: Refer to Physician's note. [employer]PERATOR: No focal deficit MSK: No EPS, TDK, or abnormal involuntary movements Diagnosis: 1-major depressive disorder, recurrent, severe, without psychotic features. 2alcohol intoxication in context of alcohol use disorder. 3alcohol use disorder, recurrent, moderate to severe. 4generalized anxiety disorder. Assessment: 53-year-old female admitted with suicidal attempt and alcohol intoxication. Apparently, psychosocial circumstances including recent COVID pandemic other major precipitating factor. She appears evasive and minimizing alcohol use and her suicidal attempt. Given her limited insight about the severity of the situation, impulsivity, distress, and high anxiety, she is in imminent danger of self-harm. Recommending inpatient psych admission. Meanwhile, Prozac can be increased to 40 mg daily. Today, she appears relatively interactive, coherent, and less impulsive. Stating, she is very remorseful and guilty about her attempt. States, she is no t going to do ever in her life as she was not aware of circumstances. Discussed, her son Mr. Monterroso over phone. Safety plan discussed with him. He reported that his mother had substantial social support and friends to care about. He assured patient's safety upon discharge. He was in agreement with keeping knives, sharps, and medications including [id number] medications under lock. He stated, patient works from home. His sister and patient's partner and patient's sister who is also patient's best friend, will do stay and monitor patient 15/12. Patient and family had no access to firearms. Patient had already discussed with her insurance [employer] and provided them a list of psych iatrist and counseling resources. Apparently, patient is not in imminent danger to self or others. She is very insightful with forward thinking. Family and children reported to be the protective factors. Plan: 1safety plan discussed with patient and family. Patient has good strong social support, apparently not in imminent danger to self or others. 2increase gabapentin to 300 mg 3 times a day to prevent alcohol withdrawals and alcohol craving. 3continue Prozac to 40 mg daily for depression and anxiety. 4in case of emergency, patient is in agreement to call 911, come to ER for assessment, or call crisis hotline. Until stability, she would not drive. Her son was also in agreement. Thank you for involving inpatient care. MICHELINE VENTURA MD Nov 16, 2019 19:40
== END 2019-11-16 19:35 | disposition home or self-care (01) | DRG 897 ==
LOC: ER 20:07 → ED HOLD 11-15 00:13 → 6 SOUTH 11-15 00:35
PROVIDERS: ADMIT Internal Medicine; ATTEND Internal Medicine
DX: F10.129 Alcohol abuse with intoxication, unspecified (principal); F33.2 Major depressive disorder, recurrent severe without psychotic features; T78.40XA Allergy, unspecified, initial encounter; T14.91XA Suicide attempt, initial encounter; D72.829 Elevated white blood cell count, unspecified; Z20.828 Contact with and (suspected) exposure to other viral communicable diseases; F41.1 Generalized anxiety disorder; F43.10 Post-traumatic stress disorder, unspecified; K21.9 Gastro-esophageal reflux disease without esophagitis; Z79.899 Other long term (current) drug therapy; Z88.0 Allergy status to penicillin; Z98.84 Bariatric surgery status
CPT/HCPCS: 36415; 80048; 80076; 80307; 81001; 83036; 83735; 85025; 93005; 96361; 96372; 96374; 96375; 99285; G0480; J0171; J1200; J2060; J2930; J3411; J3490; J7030; G0378; U0003-CS